=== PATIENT | male | born 1935 | race Caucasian/White ===

== ENCOUNTER 2016-08-12 15:06 | Inpatient (IN) ==
[2016-08-12] MEDS ORDERED: NS 500 ML IV ONE (15:38)
[2016-08-12 16:35] LABS: BASO% 0.1 % (0.0-0.8); HEMATOCRIT 35.1 % (42.0-52.0); HEMOGLOBIN 11.6 g/dL (14.0-18.0); IMM GRAN# 0.06 X1000 (0.0-0.04); IMM GRAN% 0.3 % (0.0-0.5); LYMPH% 3.8 % (20.5-51.1); MANUAL DIFF NEEDED? NO; MCH 29.8 PG (27-31); MCV 90.2 FL (81-99); MONO# 0.95 X1000 (0.11-0.59); MONO% 4.5 % (1.7-9.3); MPV 10.8 FL (7.4-10.4); NEUT% 91.3 % (42.2-75.2); PLT 175 X1000 (130-400); RBC 3.89 XMIL (4.7-6.1)
[2016-08-12 17:07] LABS: ALBUMIN 3.5 g/dL (3.5-5.0); CALCIUM 8.1 mg/dL (8.8-10.2); MAGNESIUM 0.9 mg/dL (1.5-2.7); POTASSIUM 4.4 mmol/L (3.5-5.1); TOTAL BILIRUBIN 3.05 mg/dL (0.20-1.00); TOTAL PROTEIN 7.2 g/dL (6.3-8.3)
--- NOTE | 2016-08-12 17:08 | Diag Imaging Result Document ---
PROCEDURE NAME: CHEST-2 VIEWS - 08/12/2016 FRONTAL AND LATERAL CHEST, TWO VIEWS: COMPARISON: 05/29/2014. FINDINGS: The lungs are well expanded. The heart is enlarged. The vessels are not distended. No pneumonia. No pleural effusions. No free air beneath the diaphragm. IMPRESSION: Cardiomegaly.
[2016-08-12 17:12] LABS: INR 1.05; PROTIME 11.1 Seconds (9.2-11.7); PTT 28.9 Seconds (22.0-36.0)
[2016-08-12] MEDS ORDERED: MAGNESIUM SULFATE 2 GM/S.W.I. 2 GM/50 ML IVPB IV ONE (17:24)
[2016-08-12 17:59] LABS: URINE CULTURE NEEDED? NO; URINE MICRO REVIEW NEEDED? NO; URINE SOURCE CATH
[2016-08-12 18:06] LABS: BILIRUBIN URINE SMALL (NEGATIVE); BLOOD URINE NEGATIVE (NEGATIVE); COLOR YELLOW; GLUCOSE URINE NEGATIVE (NEGATIVE); LEUKOCYTES URINE NEGATIVE (NEGATIVE); NITRITE URINE NEGATIVE (NEGATIVE); PH URINE 5.5; PROTEIN URINE 50 mg/dL (NEGATIVE); TURBIDITY URINE HAZY (CLEAR); UROBILINOGEN URINE 3 mg/dL (NORMAL)
[2016-08-12 18:07] LABS: UR EPITHELIAL CELLS <10 /HPF (<10); URINE BACTERIA NEGATIVE /HPF; URINE RBC <10 /HPF (<10); URINE WBC <10 /HPF (<10)
--- NOTE | 2016-08-12 18:16 | PROVIDER DOCUMENTATION ---
This chart was entered by Regine Brunner Scribe, acting as scribe for Deshaun Mills MD. HPI-General Adult - General Chief Complaint: Weakness Stated Complaint: low blood sugar Time Seen by Provider: 08/12/16 15:30 Source: patient, family (daughter) Allergies/Adverse Reactions: Patient Allergies Allergy/AdvReac Type Severity Reaction Status Date / Time Penicillins Allergy Severe HIVES Verified 08/12/16 15:14 Home Medications: Home Medication List Medication Instructions Recorded Confirmed Last Taken Type ATORVAstatin [Lipitor] 40 mg PO DAILY 05/29/14 08/12/16 08/11/16 History Carvedilol [Coreg] 6.25 mg PO BID 05/29/14 08/12/16 08/12/16 History ENALApril [Vasotec] 20 mg PO BID 05/29/14 08/12/16 08/12/16 08:00 History Glimepiride 2 mg PO DAILY 05/29/14 08/12/16 08/12/16 History Metformin E.r. [Glucophage Xr] 500 mg PO BID 05/29/14 08/12/16 08/12/16 History Spironolactone [Aldactone] 25 mg PO DAILY 05/29/14 08/12/16 08/12/16 History Levofloxacin [Levaquin] 500 mg PO DAILY #7 tablet 08/16/16 Unknown Rx - History of Present Illness -Gen Adult Nature of Presenting Problems: Pt is 81 y/o M presents to the ED with low blood sugar. Pt's daughter states Pt has had N and V since yesterday. Pt's daughter states F. Pt denies pain. Pt denies syncopal episode. Location of Pain/Injury: reports: generalized Pain Radiation: reports: no radiation Quality of Pain: reports: none Severity: reports: mild Onset/Duration: reports: 24 hours ago Timing: reports: still present Context/Activities at Onset: reports: light activity Modifying Factors: improves with: nothing Associated Symptoms: reports: fever/chills (F), loss of appetite, nausea, vomiting, weakness. denies: anxiety, arm pain, back/neck pain, chest pain, constipation, cough, diaphoresis, diarrhea, dizziness, EENT symptoms, fatigue, genitourinary problems, headaches, heartburn, joint pain, malaise, muscle aches , sinus congestion/drainage, rash, seizure, shortness of breath, sensory/motor loss, pain with inspiration, swelling/mass in abdomen, syncope, trouble walking Similar Symptoms Previously?: Yes Recently seen or treated by another doctor?: No Review of Systems - Adult - REVIEW OF SYSTEMS - ADULT Constitutional: reports: no symptoms reported Eyes: reports: no symptoms reported Ears, Nose, Mouth & Throat: reports: no symptoms reported Cardiovascular: reports: irregular heart rate (tachy). denies: chest pain, heart murmur Respiratory: reports: no symptoms reported Gastrointestinal: reports: no symptoms reported Genitourinary: reports: no symptoms reported Musculoskeletal: reports: muscle weakness. denies: bone pain, joint pain, neck pain Integumentary: reports: no symptoms reported Neurological: reports: no symptoms reported Psychiatric: reports: no symptoms reported Endocrine: reports: no symptoms reported Hematologic/Lymphatic: reports: no symptoms reported Allergic/Immunologic: reports: no symptoms reported All Other Systems: Reviewed and Negative Past History - Adult - PAST MEDICAL HISTORY-ADULT Review of Records: reports: Nursing Assessment Review, Medications Reviewed, Social history reviewed & non-contributory. Major Childhood Illnesses: reports: denies history Cardiovascular: reports: HTN, hyperlipidemia Respiratory: reports: denies history Gastrointestinal: reports: denies history Obstetrical/Gynecological: reports: denies history Genitourinary: reports: denies history Musculoskeletal: reports: denies history Neurological: reports: denies history Endocrine/Immune: reports: Diabetes Other Conditions: reports: denies history - PRIOR SURGERIES/PROCEDURES Surgical/Procedure History: reports: orthopedic (extremity) (foot Sx) - IMMUNIZATION STATUS Childhood Immunizations: UTD Flu Vaccine: UTD - FAMILY HISTORY Family History: reviewed, not pertinent - SOCIAL HISTORY Smoking: quit greater than 1 year, cigarettes Substance Use: denies Living Situation: family Physical Exam-General - PHYSICAL EXAM-ADULT Initial Vital Signs Reviewed: Yes - CONSTITUTIONAL General Appearance: appears well, alert - EYES Eyes: PERRL/EOMI - HEAD, EARS, NOSE, MOUTH & THROAT HENMT: normocephalic/atraumatic, moist mucous membranes - NECK Neck: normal inspection - RESPIRATORY Respiratory: chest non-tender, lungs clear, normal breath sounds - CARDIOVASCULAR Cardiovascular: tachycardia - GASTROINTESTINAL (ABDOMEN) Abdominal Exam: normal bowel sounds, non tender, soft - MUSCULOSKELETAL Back Exam: normal inspection, no vertebral tenderness Extremity: normal range of motion, non-tender, normal inspection - SKIN Integumentary: normal color, normal turgor, warm/dry, other (discoloration to the top of head) - NEUROLOGIC Neurologic: grossly normal, no motor/sensory deficits - PSYCHIATRIC Psych/Mental Status: normal mood/affect, oriented x 3 Progress - PLAN OF CARE/RESULTS Progress/Plan/Lab Results: Vital Signs - 8 hr 08/12/16 15:08 Temperature 98.6 F Pulse Rate 108 H Respiratory Rate 18 Blood Pressure 112/72 O2 Sat by Pulse Oximetry 99 Result Diagrams: 08/15/16 06:26 08/16/16 06:20 - EKG 1 Time of EKG reading by physician:: 17:34 EKG Read and Signed by:: Lilly Mills EKG Interpretation (*Must complete 3 of following elements*): Abnormal Rate: 87 Rhythm: sinus rhythm with premature atrial complexes - XRAY 1 XRAY Study: Chest Impression: Abnormal XRAY Interpretation: cardiomegaly - CHANGE OF SHIFT REPORT (ED Provider) Report Given and Care Transferred to:: Dr. Hollingsworth Time of Transfer: 18:09 Items Pending: Labs, CT/MRI Results, Ultrasound Results Departure - Departure Date of Disposition Decision: 08/12/16 Time of Disposition Decision: 21:00 DIAGNOSIS: Hypoglycemia, Weakness Disposition: ADMITTED INPATIENT 09 Certified Medical Emergency: Emergent Condition: Stable - Critical Care Note This patient required my direct & personal management of CC.: No This chart was documented by the indicated scribe, (Regine Brunner Scribe) and accurately reflects the services I performed and decisions made by Lina schuler Tom-Meka M., MD, as attested by the provider's signature.
[2016-08-12] MEDS ORDERED: NS 1,000 ML IV PRN (22:44)
[2016-08-12] MEDS ORDERED: ZOFRAN IV PRN (22:44)
[2016-08-12] MEDS: HUMULIN R SUBQ SCH (23:39)
[2016-08-12] MEDS: LEVAQUIN 500 MG/D5W 500 MG/100 ML IVPB IV SCH (23:39)
--- NOTE | 2016-08-12 23:41 | HISTORY AND PHYSICAL ---
PRIMARY CARE PHYSICIAN: Dr. Asael Valentino. CHIEF COMPLAINT: Nausea, vomiting, mild abdominal pain. HISTORY OF PRESENTING ILLNESS: An 81-year-old male with a history of diabetes mellitus type 2, hypertension, hyperlipidemia, had presented to emergency department with 1-day history of having intractable nausea, vomiting. He states that he had some mild abdominal discomfort. However he does have a high pain threshold. He had presented to emergency department. He had imaging done which did show dilated common bile duct with some debris in it. It was suspected possibly had choledocholithiasis. Subsequently he will need hospitalization for further management. At the time of my examination he had denied any headache, chest pain, shortness of breath, hemoptysis, melena or any weight changes but did complain to having some mild fevers and nausea, vomiting and some abdominal discomfort. PAST MEDICAL HISTORY: Include diabetes mellitus type 2, hypertension, hyperlipidemia. 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 ALLERGIES: Penicillin. CURRENT MEDICATIONS: As listed in the MAR. SOCIAL HISTORY: He is a former smoker, history of alcohol abuse in the past. Denies any illicit drug use. He is fairly independent. FAMILY HISTORY: No history of coronary disease. REVIEW OF SYSTEMS: [employer] point systems is as in HPI. Other systems all negative. PHYSICAL EXAMINATION: GENERAL: Cooperative, friendly, elderly male. He is resting comfortably now. VITAL SIGNS: Temperature 98.6 degrees, pulse 108, respiration 18, blood pressure 112/72. He is saturating 99%. HEENT: Atraumatic, normocephalic. Extraocular movements intact. PERRLA. NECK: No masses. CHEST: Clear to auscultation. CARDIOVASCULAR: Regular rate and rhythm. ABDOMEN: Soft. Mild tenderness. EXTREMITIES: No edema. NEURO: He is awake, alert, oriented x3. : No bladder distention. SKIN: Warm. LABORATORIES AND STUDIES: WBCs 21.26, hemoglobin 11.6, hematocrit 35.1, platelets 175,000. Sodium 133, potassium 4.4, chloride 94, CO2 is 19, BUN is 22, creatinine is 2.1, glucose is 172, magnesium is 0.9. ASSESSMENT: This is an 81-year-old male with a history of diabetes mellitus type 2, hypertension, hyperlipidemia, presented to emergency department with a 1-day history of having nausea, vomiting and abdominal discomfort. The patient had imaging done which did show a dilated common bile duct. Subsequently, he will need hospitalization for management. 1. Abdominal pain. 2. Suspected choledocholithiasis. 3. Hypomagnesemia. 4. Acute kidney injury. 5. Diabetes mellitus type 2. 6. Hypertension. PLAN: 1. We will admit patient to medical floor with telemetry. 2. We will keep patient NPO. Continue with IV fluids, pain control and antiemetics. 3. We will consult general surgery for evaluation of suspected choledocholithiasis. 4. Replace magnesium as was done in the ER. 5. We will monitor his renal function. Continue with gentle hydration. 6. Monitor blood glucose and continue patient on sliding scale insulin regimen. 7. We will monitor blood pressure. Resume antihypertensive agent. 8. We will put patient on DVT prophylaxis with SCD. 9. We will continue to follow and reassess. cc: Deepak Olson MD
[2016-08-13 06:42] LABS: MANUAL DIFF NEEDED? NO
[2016-08-13 06:43] LABS: BASO% 0.1 % (0.0-0.8); EOS# 0.02 X1000 (0.0-0.7); EOS% 0.1 % (0.0-10.0); HEMATOCRIT 32.9 % (42.0-52.0); HEMOGLOBIN 10.9 g/dL (14.0-18.0); IMM GRAN# 0.03 X1000 (0.0-0.04); IMM GRAN% 0.2 % (0.0-0.5); LYMPH# 1.94 X1000 (1.2-3.4); LYMPH% 12.8 % (20.5-51.1); MCH 29.8 PG (27-31); MCHC 33.1 g/dL (33-37); MCV 89.9 FL (81-99); MONO# 0.97 X1000 (0.11-0.59); MONO% 6.4 % (1.7-9.3); MPV 10.2 FL (7.4-10.4); NEUT% 80.4 % (42.2-75.2); PLT 167 X1000 (130-400); RBC 3.66 XMIL (4.7-6.1)
[2016-08-13] MEDS ORDERED: D50W SYRINGE IV ONE (06:43)
[2016-08-13 07:04] LABS: ALBUMIN 3.4 g/dL (3.5-5.0); CALCIUM 8.9 mg/dL (8.8-10.2); MAGNESIUM 1.8 mg/dL (1.5-2.7); POTASSIUM 4.6 mmol/L (3.5-5.1); TOTAL BILIRUBIN 2.82 mg/dL (0.20-1.00); TOTAL PROTEIN 6.8 g/dL (6.3-8.3)
[2016-08-13] MEDS: HUMULIN R SUBQ SCH ×5 (07:07→20:58)
[2016-08-13] MEDS ORDERED: DILAUDID IV PRN (07:59)
[2016-08-13] MEDS: D5 NS 1,000 ML IV SCH ×2 (08:30→20:50)
[2016-08-13] MEDS: PROTONIX IV SCH ×2 (12:20→20:50)
[2016-08-13] MEDS: SODIUM CHLORIDE 0.9% INJ SCH ×2 (12:20→20:50)
--- NOTE | 2016-08-13 12:57 | Diag Imaging Result Document ---
PROCEDURE NAME: CT ABD/PELVIS W/ IV CONT ONLY - 08/12/2016 CT ABDOMEN AND PELVIS WITHOUT CONTRAST: TECHNIQUE: No contrast administered per request of the referring provider. A dose reduction protocol was used. No comparison exam. FINDINGS: There is apparent calcified pleural plaque at the posterior base of the left chest. There are no substantial abnormalities of the liver or adrenal glands. The spleen appears upper normal in size. The pancreas is somewhat atrophic but shows no acute abnormality. The common bile duct is distended up to approximately 1.5 cm. There is possibly some soft-tissue density debris in distal common bile duct. There are no densely calcified gallstones identified. There is an apparent 2.9 cm uncomplicated duodenal diverticulum which arises at the proximal transverse duodenum at the inferior aspect of the pancreatic head. There is a tiny nonobstructing stone in the right kidney. There is no hydronephrosis. There is a 3.5-cm distal abdominal aortic aneurysm. There is ectasia of the bilateral common iliac arteries. There are atherosclerotic calcifications noted. There is no retroperitoneal hematoma seen. There are fat-containing bilateral inguinal hernias. There is no bowel-containing hernia seen. There is no evidence of bowel obstruction. The appendix is unremarkable. There is uncomplicated colonic diverticulosis which is most prominent at the sigmoid colon. There is no free air, substantial free fluid, or abscess identified. IMPRESSION: 1. Distended common bile duct up to 1.5 cm. Possible debris in distal common bile duct. There are no densely calcified gallstones seen. 2. 2.9 cm uncomplicated diverticulum arising at proximal transverse duodenum. Uncomplicated colonic diverticulosis. 3. Bilateral fat-containing inguinal hernias. No bowel-containing hernia. No bowel obstruction. 4. No abscess. No free air. 5. 3.5 cm infrarenal abdominal aortic aneurysm. No retroperitoneal hematoma. There are atherosclerotic calcifications noted. 6. Tiny nonobstructing stone in right kidney. No hydronephrosis. Preliminary results were provided at 7:19 p.m. on 08/12/2016.
--- NOTE | 2016-08-13 15:11 | PROGRESS NOTE ---
DATE: 08/13/2016 SUBJECTIVE: Mr. Bud Ruby is an 81-year-old, male. He is in no acute distress. He is able to answer questions appropriately. He is resting comfortably in bed. He denies any abdominal pain at this time. States that he feels great this morning and that he is hungry. He did state that his blood sugar was low this morning. He feels better since it improved. No other complaints. OBJECTIVE: Vital Signs: Temperature is 97.4 degrees, heart rate 73, respiratory rate 16. Blood pressure 134/66, saturation is a 98% on room air. Cardiovascular: S1, S2. Regular rate and rhythm. No rubs, gallops, or murmurs. Pulmonary: Clear to auscultation. Bilateral breath sounds. No accessory muscle use or work of breathing noted. GI: Soft, nontender, round, obese. Positive bowel sounds x4. Extremities: Trace lower extremity edema. +2 dorsalis and radial pulses. LABORATORY DATA: White blood cells 15,000, hemoglobin 10, hematocrit 32, platelet count 167,000. Sodium 139, potassium 4.6, BUN 21, creatinine is 1.5. Glucose was 54, but is back up to 92. Magnesium 1.8. Total bilirubin is 2.82, AST 139, ALT 112. IMAGING: None for today. ASSESSMENT AND PLAN: 1. Some abdominal pain which is improved with IV fluid hydration and nothing per oral status, although he can have ice chips. 2. Gastroesophageal reflux disease. 3. Suspected choledocholithiasis. General Surgery has been consulted. He is nothing per oral except for ice chips. The abdominal ultrasound or the gallbladder ultrasound showed distended common bile duct at 1.2 cm and distal common bile duct was obscured by artifacts. There were no gallstones and the gallbladder was partially contracted. When abdominal-pelvic CT was performed, it showed uncomplicated diverticulosis. No abscess or free air, no obstruction and it showed fat-containing inguinal hernias, but it also showed the distended common bile duct up to 1.5 cm with possible debris is in the distal duct. We will continue with IV fluid hydration, nothing per oral and ice chips. 4. Hypomagnesemia is resolved. 5. Acute kidney insufficiency on chronic kidney disease, stage 3. Again, continue with IV fluid hydration. 6. Diabetes mellitus type 2. Continue with pattern blood glucoses and sliding scale insulin. He did get hypoglycemic this morning. 7. Hypertension. Continue to monitor. 8. Hypoglycemia. D5 normal saline at 75 an hour. 9. Leukocytosis, continue with gram-negative IV antibiotic coverage, deep venous thrombosis prophylaxis. Sequential Compression Devices. Dictated by MEHRDAD Cadet for Zofia Gomez MD cc: MEHRDAD Cadet MD
--- NOTE | 2016-08-13 16:57 | CONSULTATION ---
DATE OF CONSULTATION: 08/13/2016 HISTORY OF PRESENT ILLNESS: This 81-year-old male with history of diabetes who presents with approximately 72 hour history of nausea, vomiting, progressive fatigue and hypoglycemia at the medicine service. He denies any abdominal pain. He has had some fevers at home. He had some altered mental status and ataxia and was brought in by the family, found to be hypoglycemic at 37 at home. States his bowel movements have been normal. Denies any GI bleeding. Had some nausea, vomiting and some epigastric discomfort, but this is all resolved now. Family has not noted anything else out of the ordinary. He has never had a colonoscopy or EGD. PAST MEDICAL HISTORY: Diabetes, hypertension, hyperlipidemia. PAST SURGICAL HISTORY: He has had a toe removed from each foot. Otherwise, no abdominal operations. SOCIAL HISTORY: History of smoking and alcohol, but nothing recent. He has got a lot of family here with him. FAMILY HISTORY: Negative for cancer. REVIEW OF SYSTEMS: Ten point negative unless mentioned in HPI. Weight has been stable as well. PHYSICAL EXAMINATION: Vital signs: Temperature 97.6 degrees, pulse 71, blood pressure 141/71, O2 saturation 98% on room air. General: He is alert, in no acute distress. HEENT: There is some mild scleral icterus. There are no cervical masses or lymphadenopathy. Cardiovascular: Normal rate, regular rhythm. Pulmonary: No increased work of breathing. Abdomen: Soft, nontender, nondistended. Integument: Warm, dry, he does have jaundice noted. Musculoskeletal: Normal tone and muscle mass throughout given his age. Neurologic: I do not see any focal deficits. He is alert and oriented. LABORATORY: White count 15, it was 21 on admission, hematocrit 32, platelets 167,000. INR is 1.05. Sodium is 139, potassium 4.6, creatinine is 1.7, glucose is 54 this morning. Magnesium is 1.8, it was 0.9 yesterday and bilirubin is 2.82. AST is 139, ALT 112. Alkaline phosphatase 187. No lipase. Albumin is 3.4. Urinalysis with bilirubin negative for nitrates and leukocytes. DIAGNOSTICS: Ultrasound of the abdomen showed no gallstones and normal gallbladder. Otherwise, there is some common bile duct dilation to 1.[address] scan of the abdomen and pelvis p.o. and IV contrast showed distended common bile duct up to 1.5 cm and there is question of distal debris. 3.5 cm abdominal aortic aneurysm. Diverticulosis. No inflammation. No free air. Fat-containing inguinal hernias. No bowel obstruction. On my read, I also see a heterogeneous gas-appearing collection that looks like it is in the head of the pancreas. I do not see any discrete masses. ASSESSMENT AND PLAN: This is an 81-year-old male with jaundice, hypoglycemia, nausea, vomiting of unclear etiology. His ultrasound did not show any gallstones. It is possible that this is all choledocholithiasis; however, I suspect a process in the head of the pancreas. Whether this is a perforated duodenal ulcer in the head of pancreas or some pancreatic process, I am waiting to hear from the radiologist on their thoughts on this as well. We will monitor him. He is on IV antibiotics, IV fluids. Recommend strict nothing per oral at this point, until we determine the etiology of this, and I suspect he will need the MRCP or ERCP to stent the distal duct, and we will decide on need for cholecystectomy in the future. I do not see any cholecystitis right now. I have ordered a lipase. We will need to monitor him closely for this. cc: Jovani Pinedo MD
[2016-08-13] MEDS: LEVAQUIN 500 MG/D5W 500 MG/100 ML IVPB IV SCH (21:44)
[2016-08-14] MEDS: HUMULIN R SUBQ SCH ×5 (06:57→23:06)
[2016-08-14 07:01] LABS: MANUAL DIFF NEEDED? NO
[2016-08-14 07:03] LABS: BASO% 0.1 % (0.0-0.8); EOS# 0.07 X1000 (0.0-0.7); EOS% 0.6 % (0.0-10.0); HEMATOCRIT 33.4 % (42.0-52.0); HEMOGLOBIN 10.9 g/dL (14.0-18.0); IMM GRAN# 0.03 X1000 (0.0-0.04); IMM GRAN% 0.3 % (0.0-0.5); LYMPH% 14.7 % (20.5-51.1); MCH 29.7 PG (27-31); MCHC 32.6 g/dL (33-37); MONO# 0.78 X1000 (0.11-0.59); MONO% 7.1 % (1.7-9.3); MPV 10.3 FL (7.4-10.4); NEUT% 77.2 % (42.2-75.2); PLT 186 X1000 (130-400); RBC 3.67 XMIL (4.7-6.1)
[2016-08-14 07:27] LABS: ALBUMIN 3.4 g/dL (3.5-5.0); CALCIUM 9.1 mg/dL (8.8-10.2); POTASSIUM 5.3 mmol/L (3.5-5.1); TOTAL BILIRUBIN 1.46 mg/dL (0.20-1.00); TOTAL PROTEIN 6.9 g/dL (6.3-8.3)
--- NOTE | 2016-08-14 07:57 | Diag Imaging Result Document ---
PROCEDURE NAME: US GB < RUQ (LIMITED) - 08/12/2016 ULTRASOUND GALLBLADDER: FINDINGS: The gallbladder is partially contracted. Allowing for this, the gallbladder yanes do not appear substantially thickened. There is no pericholecystic fluid seen. The technologist reports negative sonographic Larios's sign. There are no gallstones identified. The common bile duct is distended at 1.2 cm. There is no etiology for this apparent. The distal common bile duct is obscured by artifacts from bowel gas, however. The liver demonstrates homogeneous attenuation. There is no liver lesion identified. IMPRESSION: 1. Partially contracted gallbladder. No visible gallbladder abnormality otherwise. No gallstones identified. 2. Distended common bile duct at 1.2 cm. There is no etiology for the distention apparent, but the distal common bile duct is obscured by bowel gas artifacts. 3. No visible liver lesion. Preliminary results were provided at 7:36 p.m. on 08/12/2016.
[2016-08-14] MEDS: SODIUM CHLORIDE 0.9% INJ SCH ×2 (08:16→20:19)
[2016-08-14] MEDS: PROTONIX IV SCH ×2 (08:16→20:19)
[2016-08-14] MEDS ORDERED: HUMULIN R SUBQ SCH (11:00)
[2016-08-14 11:32] LABS: HEPATITIS PROFILE ACUTE SEE COMMENTS
[2016-08-14] MEDS: D5 NS 1,000 ML IV SCH (12:25)
--- NOTE | 2016-08-14 13:39 | PROGRESS NOTE ---
DATE: 08/14/2016 SUBJECTIVE: The patient states that he is hungry and wants to eat. He denies having any nausea, vomiting or abdominal pain. OBJECTIVE: Vital Signs: Temperature 97 degrees, blood pressure 171/73, heart rate 73, respirations 14, O2 saturations 98% on room air. General: This is an elderly male, lying in bed, in no acute distress. HEENT: Head normocephalic atraumatic. Heart: S1, S2. Normal. Regular rate and rhythm. Lungs: Clear to auscultation bilaterally. No wheezing. No rales. No rhonchi. Abdomen: Positive bowel sounds. Soft, nontender, nondistended. Extremities: No edema. No cyanosis. No calf tenderness. Neurologic: The patient is alert and oriented x3. No focal neurologic deficits noted. LABS: White blood cell count 10, hemoglobin 10, hematocrit 33, platelets 186,000. Sodium 140, potassium 5.3, chloride 103, CO2 27, BUN 14, creatinine 1.5, glucose 137, calcium 9.1, AST 111, total bilirubin 1.4, ALT 95, alkaline phosphatase 184, albumin 3.4. ASSESSMENT AND PLAN: 1. Suspected choledocholithiasis. The patient's LFTs are slowly improving. The patient does have a distended common bile duct on ultrasound. We will await further recommendations from the fire management specialist. 2. Hypertension. The patient is currently NPO. We will start the patient on p.r.n. labetalol for blood pressure control. 3. Diabetes mellitus type 2. Stable. Will continue to monitor the Accu-Cheks before meals and at bedtime. 4. Acute kidney injury. Slowly improving. Continue on IV fluid hydration. 5. Deep vein thrombosis prophylaxis. Continue with SCDs. Will hold Lovenox in anticipation of a possible procedure tomorrow. cc: Zofia Gomez MD
--- NOTE | 2016-08-14 17:30 | PROGRESS NOTE ---
DATE: 08/14/2016 SUBJECTIVE: Feels well. No nausea or vomiting. No abdominal pain. Jaundice is improved. OBJECTIVE: Vital signs: Temperature is 97.6 degrees, no fevers overnight, pulse 81, blood pressure 149/90, oxygen saturation 98% on room air. General: He is alert. Skin: There is persistent jaundice but it has improved. HEENT: No scleral icterus. Cardiovascular: Normal rate. Regular rhythm. Pulmonary: No increased work of breathing. Abdomen: Soft, nontender, nondistended. Extremities: No lower extremity edema. LABS: White count down to 10, hematocrit 33, platelets are 186. Creatinine is 1.5, bilirubin is 1.46, AST 113, ALT 95, alkaline phosphatase 185. Hepatitis panel negative. ASSESSMENT AND PLAN: This is an 81-year-old white male admitted with hypoglycemia, nausea, vomiting, and found to be jaundiced. CT scan shows dilated common bile duct likely related to either a contained perforation of the duodenum or duodenal diverticulum. His numbers are improving. He has no sign of cholangitis or bowel obstruction or gastric outlet obstruction. Also on the ultrasound of his gallbladder he has no stones or gallbladder abnormalities. I have asked Dr. Macile to see and evaluate for ERCP. I think this would be both diagnostic and therapeutic I suspect this is some extrinsic compression on the distal common bile duct by the process in his duodenum. If his ERCP shows stones will perform a cholecystectomy. He is on antibiotics for adequate intra-abdominal coverage. cc: Jovani Pinedo MD
[2016-08-14] MEDS: LEVAQUIN 500 MG/D5W 500 MG/100 ML IVPB IV SCH (20:19)
[2016-08-14] MEDS: MELATONIN PO PRN (20:21)
--- NOTE | 2016-08-14 21:42 | CONSULTATION ---
DATE OF CONSULTATION: 08/14/2016 REASON FOR REFERRAL: Nausea, vomiting, elevated liver function tests. HISTORY OF PRESENT ILLNESS: This is an 81-year-old male with a history of diabetes. He had complained of episodes of nausea and vomiting starting last . He had not been able to eat. Because of that he had low blood sugar. He came in for further evaluation. He had imaging studies of abdominopelvic CT scan that showed a distended common bile duct up to 1.5 cm, possible debris in the distal common bile duct, 2.9 cm uncomplicated diverticulum in the transverse duodenum, bilateral fat containing inguinal hernias noted, 3.5 cm infrarenal abdominal aortic aneurysm and tiny nonobstructive stones in the right kidney with no hydronephrosis. An abdominal ultrasound showed partially contracted gallbladder with no visible gallbladder abnormality, no stones noted, distended common bile duct at 1.2 cm and no visible liver lesion. On admission his total bilirubin was 3.05, AST 166, ALT 126, alkaline phosphatase 211. Today his total bilirubin is 1.46, AST 113, ALT 95, alkaline phosphatase 184. The patient denies abdominal pain. He has never had an EGD or colonoscopy. Denies rectal bleeding. Denies melena. He did have some fever with nausea and vomiting. PAST MEDICAL HISTORY: Diabetes type 2, hypertension, hyperlipidemia. PAST SURGICAL HISTORY: Left and right toe amputations. ALLERGIES: Penicillin causing hives. HOME MEDICATIONS: Aldactone 25 mg daily, metformin 500 mg twice daily, glimepiride 2 mg daily, Vasotec 20 mg twice daily, Coreg 6.25 mg twice daily, Lipitor 40 mg daily. SOCIAL HISTORY: He quit tobacco and alcohol use over 50 years ago. He is . He has 4 children. REVIEW OF SYSTEMS: Per history of present illness. PHYSICAL EXAMINATION: Vital Signs: Temperature 97.6 degrees, pulse 81, respirations 14, blood pressure 147/90. General: Patient is awake, alert, in no acute distress. HEENT: No noted scleral jaundice. Cardiovascular: Regular rate and rhythm. Abdomen: Soft, nontender, nondistended. Positive bowel sounds. Extremities: No lower extremity edema noted. Skin: Some mild skin jaundice. DIAGNOSTIC RESULTS/ LABORATORY: Hematology: White count 10.92, hemoglobin 10.9 , hematocrit 33.4, MCV 91.0, platelets 186,000. Coagulation: Pro time 11.1, INR 1.05, PTT 28.9. Chemistry: Sodium 140, potassium 5.3, chloride 103, CO2 27, BUN 14, creatinine 1.5, glucose 137, calcium 9.1, magnesium 1.8. Total bilirubin 1.46, AST 113, ALT 95, alkaline phosphatase 184 , albumin 3.4. ASSESSMENT AND PLAN: 1. Abnormal CT scan findings with dilated common bile duct. 2. Elevated LFTs. CT scan showed dilated common bile duct, possible contained perforation of the duodenum or duodenal diverticulum. LFTs have improved. We will first proceed with an EGD and then depending on the findings we may consider ERCP. Further plans to be made according to findings. I have discussed the EGD procedure with the patient along with benefits and risks, and he wishes to proceed. We will allow a liquid diet today. NPO for procedure, EGD tomorrow around lunchtime. Further plans to be made per Dr. Maciel. I have discussed this case with him. Thank you for this consultation. Dictated by MEHRDAD Omer for Chris Maciel MD cc: MEHRDAD Marie MD [facility]
[2016-08-15] MEDS: LABETALOL IV PRN (05:00)
[2016-08-15] MEDS: D5 NS 1,000 ML IV SCH ×2 (05:01→14:29)
[2016-08-15] MEDS: HUMULIN R SUBQ SCH ×4 (06:21→22:27)
[2016-08-15 06:37] LABS: MANUAL DIFF NEEDED? NO
[2016-08-15 07:00] LABS: ALBUMIN 3.1 g/dL (3.5-5.0); BASO% 0.2 % (0.0-0.8); CALCIUM 9.3 mg/dL (8.8-10.2); EOS# 0.09 X1000 (0.0-0.7); EOS% 1.1 % (0.0-10.0); HEMATOCRIT 34.4 % (42.0-52.0); LYMPH# 2.09 X1000 (1.2-3.4); LYMPH% 24.7 % (20.5-51.1); MCV 90.8 FL (81-99); MONO# 0.61 X1000 (0.11-0.59); MONO% 7.2 % (1.7-9.3); MPV 10.8 FL (7.4-10.4); NEUT% 66.8 % (42.2-75.2); PLT 178 X1000 (130-400); POTASSIUM 4.5 mmol/L (3.5-5.1); RBC 3.79 XMIL (4.7-6.1); TOTAL BILIRUBIN 0.98 mg/dL (0.20-1.00); TOTAL PROTEIN 6.5 g/dL (6.3-8.3)
[2016-08-15] MEDS: PROTONIX IV SCH ×2 (08:31→20:38)
[2016-08-15] MEDS: SODIUM CHLORIDE 0.9% INJ SCH ×2 (08:31→20:38)
--- NOTE | 2016-08-15 13:20 | PROGRESS NOTE ---
DATE: 08/15/2016 SUBJECTIVE: Feels well. No pain. No nausea or vomiting. No fevers. He is hungry. OBJECTIVE: Vital Signs: Temperature is 98.4 degrees, pulse 67, blood pressure 170/84, oxygen saturation was 98% on room air. General: He is alert. He no longer appears jaundiced. Cardiovascular: Normal rate, regular rhythm. Abdomen: Soft, nontender, nondistended. Integument: Warm, dry. Extremities: With no lower extremity edema. Labs: White count is 8, hematocrit is 34. Creatinine is down to 1.2. Bilirubin is now normal at 0.98. AST 80, ALT 75, alkaline phosphatase 170. ASSESSMENT AND PLAN: This is an 81-year-old male with a distal bile duct obstruction, seems to be resolving. It is of unclear etiology, gallstones versus complication related to duodenal diverticulum, possible contained perforation. I talked to Dr. Maciel. He is on go for an esophagogastroduodenoscopy this morning and possible endoscopic retrograde cholangiopancreatography pending these findings. We will see if he does in fact have gallstones, I have discussed with the patient that we need to take his gallbladder out, although there are no stones noted on his ultrasound. Three could be some small sludge. We will continue to follow along and see what Dr. Maciel finds today. He is on antibiotics. cc: Jovani Pinedo MD
[2016-08-15] MEDS ORDERED: DIPRIVAN 1% ONE ×3 (13:28→14:27)
[2016-08-15] MEDS ORDERED: GLUCAGON ONE (13:42)
[2016-08-15] MEDS ORDERED: LR 1,000 ML ONE (15:38)
[2016-08-15] MEDS ORDERED: ANESTHESIA PB SET 88 IN 5742 ONE (15:38)
[2016-08-15] MEDS ORDERED: XYLOCAINE-MPF 2% ONE (15:38)
--- NOTE | 2016-08-15 16:03 | PROGRESS NOTE ---
DATE: 08/15/2016 SUBJECTIVE: Today Mr. Ruby refers to be doing fine. He just came out of an ERCP procedure. Denies any complaints. OBJECTIVE: Vital signs: Blood pressure is 158/73, pulse of 72, respirations 16, temperature 97.7 degrees. General: Mr. Ruby is an 82-year-old male. He was in bed. Not seemingly distressed. HEENT: Mucosa is pink and moist. Slightly icteric. Acyanotic. Chest: Good air entry bilaterally. Abdomen: Soft. Slightly distended but nontender. There seems to be some collateral circulation on top of the abdominal wall. Extremities: No pedal edema. PROBE OPERATOR: Patient is alert and oriented. LABORATORY DATA: WBC is 8.45, hemoglobin is 11.0, platelet count of 178,000. Chemistries: Sodium 142, potassium 4.5, chloride 104, bicarb is 24, total bilirubin is down to 0.98, AST is down to 80, and ALT is down to 75. IMAGING STUDIES: A CT scan of the abdomen and pelvis was done on presentation. That shows dilated common bile duct up to 1.5, possible distal common bile duct. An ultrasound of the abdomen was done on the which shows partial contracted gallbladder, distended common bile duct at 1.2. No visible liver injury. CURRENT MEDICATIONS: 1. Dilaudid. 2. Insulin sliding scale. 3. Labetalol p.r.n. 4. Levofloxacin 500 daily. 5. Melatonin 5 mg at bedtime. 6. Protonix 40 mg IV q.12. ASSESSMENT: 1. Dilated common bile duct on imaging, suspicious for distal common bile duct obstruction. Patient is status post an ERCP today. We are just pending the official report. 2. Hypertension, stable. 3. Diabetes mellitus, controlled. 4. Acute kidney injury is improved. PLAN: We will going to start the patient on clear liquids until we get the official report from GI and then will go from there. For now will continue the antibiotics for prophylaxis for possible cholangitis. cc: Michael Cuello MD
--- NOTE | 2016-08-15 17:30 | OPERATIVE NOTE ---
PROCEDURE DATE: 08/15/2016 PROCEDURE: Esophagogastroduodenoscopy. PREOPERATIVE DIAGNOSIS: Nausea, vomiting, elevated liver function tests, question of possible distal common bile duct stone or debris. POSTOPERATIVE DIAGNOSES: 1. 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 2. Otherwise normal esophagogastroduodenoscopy HISTORY: This is an 81-year-old gentleman admitted to hospital with nausea, vomiting, along with diarrhea. On further investigation, he was found to have elevated LFT. His imaging studies, CT scan of the abdomen and ultrasound of the abdomen result shows possibility of distal common bile duct debris or stone and slightly dilated common bile duct. EGD was done prior to ERCP to identify the etiology and treat accordingly. PROCEDURE: Informed consent was obtained from the patient. The procedure, risks, benefits, alternatives were explained in layman's terms. He understood. All his pertinent questions answered. Patient was brought to the endoscopy unit and was premedicated as per Anesthesia. After adequate sedation, while he was lying in left lateral position, the gastroscope was introduced into the posterior pharynx and advanced under direct vision into the esophagus. Esophagus in its entire length appeared to be normal. No esophagitis, webs, rings, varices were seen. Scope was then passed through the esophagus into the stomach. Stomach was examined on both straight and retroflexed view, which revealed normal cardia, fundus, body, and antrum. The scope was then passed through the normal pylorus, into the duodenal bulb, and then 2nd part of duodenum where a large diverticula was noted just distal to the ampulla. The diverticula was filled with a good bit of debris of food content. No evidence of any ulcer, AVM or masses seen. Scope was withdrawn. Patient tolerated procedure well. No complications noted. Patient was then transferred to the recovery area in a stable condition. IMPRESSION/RECOMMENDATION: Diverticulum 2nd portion of the duodenum close to the ampulla. Imaging studies have read that. I did not see any need for me to proceed with endoscopic retrograde cholangiopancreatography at this point since his transaminases are coming down, his bilirubin already normalized. His symptoms have improved. I have recommended to start him on his diet, follow his LFT after discharge. I will see him back in the office and depending on the findings, depending on his progress from here on, we will decide if he needs to proceed with any further investigation such as ERCP. I have explained the finding and plan with the patient's daughter and . There were at the bedside. They understood. All the pertinent questions answered. cc: Chris Maciel MD
[2016-08-15] MEDS: LEVAQUIN 500 MG/D5W 500 MG/100 ML IVPB IV SCH (20:38)
[2016-08-15] MEDS: MELATONIN PO PRN (20:38)
[2016-08-16] MEDS: D5 NS 1,000 ML IV SCH ×2 (03:57→04:42)
[2016-08-16] MEDS: LABETALOL IV PRN (04:41)
[2016-08-16 06:54] LABS: ALBUMIN 3.3 g/dL (3.5-5.0); CALCIUM 8.8 mg/dL (8.8-10.2); POTASSIUM 4.7 mmol/L (3.5-5.1); TOTAL BILIRUBIN 1.06 mg/dL (0.20-1.00); TOTAL PROTEIN 6.7 g/dL (6.3-8.3)
[2016-08-16 07:32] VITALS: BP 169/76
[2016-08-16] MEDS: HUMULIN R SUBQ SCH ×2 (07:41→12:00)
[2016-08-16] MEDS: PROTONIX IV SCH (08:59)
--- NOTE | 2016-08-16 10:27 | PROGRESS NOTE ---
DATE: 08/16/2016 SUBJECTIVE: Feels well. No events. Had an EGD yesterday. It showed a large, food-contained duodenal diverticulum. PHYSICAL EXAMINATION: Vital Signs: Afebrile overnight, temperature is 98.1 degrees, pulse 70, blood pressure 169/76. Oxygen saturation 99% on room air. General: He is alert. HEENT: There is no more scleral icterus. Cardiovascular: Regular rate, regular rhythm. Abdomen: Soft, nontender, nondistended. Integumentary: Warm and dry without jaundice. LABORATORY DATA: White count was down 8 yesterday. Creatinine is 1.3. Bilirubin is 1.06. AST and ALT are down to 76 and 71. Alkaline phosphatase stable at 206. ASSESSMENT/PLAN: An 81-year-old male with large duodenal diverticulum. Suspect this was causing some degree of the common bile duct outlet obstruction related to possibly some of inflammation. His liver function tests are normalizing. He has no pain. White count has normalized. No fevers. I would advance the diet to soft today. I discussed a low residual diet with him. I would recommend completing a course of oral antibiotics going forward, given his white count when he came in. I gave my card. He can see me back in the next 1-2 weeks in my office and we can follow him. We will possibly repeat labs at that time, depending on how he looks. cc: Jovani Pinedo MD
--- NOTE | 2016-08-16 14:44 | PROGRESS NOTE ---
DATE: 08/16/2016 SUBJECTIVE: Patient states he is ready to go home. He denies any abdominal pain. No nausea or vomiting. OBJECTIVE: Patient is in no acute distress.Vital Signs: Temperature 98.1 degrees, pulse 70, respirations 19, blood pressure 169/76. Recent diagnostic results: EGD done on 08/15/2016 showed a diverticulum in the 2nd portion of the duodenum. LABORATORY: Hematology: White count 8.45, hemoglobin 11.0, hematocrit 34.4, MCV 90.8. Chemistry: Sodium 141, potassium 4.7, chloride 103, CO2 28, BUN 9, creatinine 1.3, glucose 136, total bilirubin is 1.06. AST 76, ALT 71, alkaline phosphatase 206. ASSESSMENT AND PLAN: 1. Elevated LFTs are improving. 2. Abnormal scan that showed possible common bile duct dilation or stones. 3. EGD that showed a large duodenal diverticulum. Suspect this was possibly the cause of the common bile duct obstruction related to inflammation. He denies pain. His liver function tests are improving. He has discharge orders. Recommended he follow up with us in the office in 2-3 weeks. Recommend repeat liver function tests. I will give him a lab order to have prior to his office visit. Recommended he call to the office sooner if he has any problem. Dictated by MEHRDAD Omer for Chris Maciel MD cc: MEHRDAD Marie MD
--- NOTE | 2016-08-17 07:46 | DISCHARGE SUMMARY ---
ADMISSION DATE: 08/12/2016 DISCHARGE DATE: 08/16/2016 DISPOSITION: Home. FOLLOWUP: 1. Dr. Maciel. 2. Dr. Pinedo. 3. Dr. Victor. CONSULTATIONS DURING THIS ADMISSION: 1. GI was consulted. Patient was seen by Dr. Maciel. 2. Surgery was also consulted. Patient was seen by Dr. Pinedo. INVASIVE PROCEDURES DONE DURING THIS ADMISSION: 1. EGD was done by Dr. Maciel. Finding was a large diverticulum in the 2nd portion of the duodenum close to the ampulla filled with debris. Otherwise normal EGD. IMAGING STUDIES OF SIGNIFICANCE: A CT scan of the abdomen and pelvis was done on 08/12/2016 which showed distended common bile duct to 1.5. There was also a 2.9 uncomplicated diverticulum arising at the proximal transverse duodenum. There is bilateral fat containing inguinal hernias, mild infra abdominal aortic aneurysm of 3.5 cm. ADMISSION DIAGNOSES: 1. Abdominal pain, suspected choledocholithiasis. 2. Hypomagnesemia. 3. Acute kidney injury. DISCHARGE DIAGNOSES: 1. Dilated common bile duct with elevated liver function tests. 2. Large duodenal diverticulum, suspected to be the cause of the common bile duct obstruction. 3. Hypertension. 4. Diabetes mellitus. 5. Acute kidney injury, resolved. 6. Bilateral inguinal hernias. 7. Infrarenal abdominal aneurysm. DISCHARGE MEDICATIONS: 1. Metformin 500 b.i.d. 2. Atorvastatin 40 mg daily. Glyburide 2 mg daily. 1. Carvedilol 6.25 b.i.d. 2. Enalapril 20 mg b.i.d. 3. Spironolactone 25 mg daily. 4. Levofloxacin 500 p.o. daily. PRESENTING COMPLAINT: Nausea, vomiting, and mild abdominal pain. HISTORY OF PRESENTING ILLNESS: Mr. Ruby is an 81-year-old male with stable, controlled comorbidities including diabetes, hypertension, dyslipidemia, who presented to the emergency department because of abdominal pain. The patient was evaluated and initial assessment revealed a CT scan with a dilated CBD. Patient was subsequently admitted for further medical care. HOSPITAL COURSE: Patient did pretty well during the hospital stay. He was evaluated by both surgery and GI. There was a decision to do an EGD with possible ERCP. During the EGD the patient was found to have a large diverticulum at the 2nd part of the duodenum very close to the ampulla. Because the LFTs and bilirubin were trending down, the decision to do an ERCP was aborted by the endoscopist. The patient was observed after the EGD. There were no immediate post complications. Surgery re- evaluated the patient and thought the patient could go home on oral antibiotics and follow up with them. I personally spoke with Dr. Maciel, who was also okay for the patient to go home on oral antibiotics, repeat the LFTs in about a week to 2, and follow up with him. The patient will therefore get an appointment to follow up with Dr. Maciel and also with Dr. Sahhida berg. At the time of discharge there were no pending labs or imaging studies. TIME SPENT FOR DISCHARGE: 37 minutes. cc: Michael Cuello MD
[2016-08-17] MEDS ORDERED: LEVAQUIN PO SCH (20:00)
== END 2016-08-16 15:48 | disposition home or self-care (01) ==
LOC: ED 15:06 → SUATTDRO 21:57 → 3N 21:57
PROVIDERS: ATTEND Internal Medicine

== ENCOUNTER 2018-10-31 01:02 | Observation (INO) ==
[2018-10-31] MEDS ORDERED: NS 1,000 ML IV ONE (01:09)
[2018-10-31 01:53] LABS: BASO# 0.02 X1000 (0.0-0.2); BASO% 0.5 % (0.0-0.8); EOS# 0.05 X1000 (0.0-0.7); EOS% 1.2 % (0.0-10.0); HEMATOCRIT 32.1 % (42.0-52.0); LYMPH# 2.89 X1000 (1.2-3.4); LYMPH% 66.7 % (20.5-51.1); MCH 25.8 PG (27-31); MCHC 31.2 g/dL (33-37); MCV 82.7 FL (81-99); MONO# 1.33 X1000 (0.11-0.59); MONO% 30.7 % (1.7-9.3); MPV 10.6 FL (7.4-10.4); NEUT% 0.9 % (42.2-75.2); PLT 229 X1000 (130-400); RBC 3.88 XMIL (4.7-6.1); RDW 15.6 % (11.5-14.5); WBC 4.33 X1000 (4.8-10.8)
[2018-10-31 01:54] LABS: NEUT# 0.04 X1000 (1.4-6.5)
[2018-10-31 01:56] LABS: INR 1.07; PTT 30.4 Seconds (22.3-41.8)
[2018-10-31 02:02] LABS: ALB/GLOB RATIO 1.1; ALBUMIN 3.4 g/dL (3.5-5.0); CALCIUM 8.4 mg/dL (8.8-10.2); CREATININE 1.5 mg/dL (0.7-1.2); POTASSIUM 3.9 mmol/L (3.5-5.1); TOTAL BILIRUBIN 0.59 mg/dL (0.20-1.00); TOTAL PROTEIN 6.4 g/dL (6.3-8.3)
--- NOTE | 2018-10-31 02:17 | PROVIDER DOCUMENTATION ---
HPI-Neurological Disorder - General Chief Complaint: Low Blood Sugar Stated Complaint: hypoglycemia Time Seen by Provider: 10/31/18 01:07 Source: patient, family, EMS Allergies/Adverse Reactions: Patient Allergies Allergy/AdvReac Type Severity Reaction Status Date / Time Penicillins Allergy Severe HIVES Verified 07/27/17 23:09 Home Medications: Home Medication List Medication Instructions Recorded Confirmed Last Taken Type ATORVAstatin [Lipitor] 40 mg PO DAILY 05/29/14 10/31/18 07/27/17 History Carvedilol [Coreg] 6.25 mg PO BID 05/29/14 10/31/18 07/27/17 History Glimepiride 2 mg PO DAILY 05/29/14 10/31/18 07/27/17 History Spironolactone [Aldactone] 25 mg PO DAILY 05/29/14 10/31/18 07/27/17 History Enalapril Maleate 20 mg PO BID 10/31/18 10/31/18 Unknown History Metformin [Glucophage] 500 mg PO BID 10/31/18 10/31/18 Unknown History - History of Present Illness-Neuro Nature of Presenting Problem: Patient was found on the floor of his bedroom by his with seizure-like activity. No obvious trauma, last seen normal an hour or two before. Patient is a NIDDM patient who did not eat well for dinner and has had occasional episodes of hypoglycemia in the past. He sees Dr. Victor. No new medications. EMS reports D-Stick of 27 at the scene. They gave patient 1 amp of D50, and seizure stopped and patient has been getting progressively more alert. No obvious injuries. Patient's family notes a fall a couple of weeks ago, did not seek medical care at the times, but has been "doctoring" several large skin tears at home to both forearms and right upper arm. Headache Location: reports: other (seizure/AMS) Onset/Duration: reports: abrupt, just prior to arrival Timing: reports: improving Context: reports: found unresponsive by family, low blood sugar, seizure activity Approximate time patient was last seen normal?: 21:00 Character of Altered Mental Status: reports: unresponsive, seizure activity Any recent trauma/injury?: reports: minor (2 weeks ago) New weakness or altered sensation location:: reports: general (diffuse) Cognitive Baseline: alert, oriented x3 Associated Symptoms: reports: decreased ability to walk or stand, diaphoretic Similar Symptoms Previously?: Yes (on occasions, but never this bad) Recently seen or treated by another doctor?: No (emily Victor) - Seizure First time to have a seizure?: Yes Witnessed seizure?: Yes (family and EMS) How many seizure episodes?: 1 Episode details: reports: unknown duration Episode Frequency: no prior episodes Status Epilepticus: No Preceding symptoms/context:: none Character of Seizure: reports: lost consciousness, generalized shaking all over. denies: incontinent of urine, incontinent of stool Post-ictal Symptoms: reports: confusion Seizure related injury: none Review of Systems - Adult - REVIEW OF SYSTEMS - ADULT Constitutional: reports: no symptoms reported Eyes: reports: no symptoms reported Ears, Nose, Mouth & Throat: reports: no symptoms reported Cardiovascular: reports: no symptoms reported Respiratory: reports: no symptoms reported Gastrointestinal: reports: no symptoms reported Genitourinary: reports: no symptoms reported Musculoskeletal: reports: no symptoms reported Integumentary: reports: no symptoms reported Neurological: reports: see HPI Psychiatric: reports: no symptoms reported Endocrine: reports: no symptoms reported Hematologic/Lymphatic: reports: no symptoms reported Allergic/Immunologic: reports: no symptoms reported All Other Systems: Reviewed and Negative Past History - Adult - PAST MEDICAL HISTORY-ADULT Review of Records: reports: Old Records Reviewed, Nursing Assessment Review, Medications Reviewed, Social history reviewed & non-contributory. Major Childhood Illnesses: reports: denies history Cardiovascular: reports: HTN, hyperlipidemia Respiratory: reports: denies history Gastrointestinal: reports: denies history Obstetrical/Gynecological: reports: denies history Genitourinary: reports: denies history Musculoskeletal: reports: denies history Neurological: reports: denies history Endocrine/Immune: reports: Diabetes Diabetes Type: Type 2 Diabetes controlled by:: PO Meds Other Conditions: reports: denies history - PRIOR SURGERIES/PROCEDURES Surgical/Procedure History: reports: orthopedic (extremity) (foot Sx) - IMMUNIZATION STATUS Childhood Immunizations: UTD Flu Vaccine: UTD - FAMILY HISTORY Family History: reviewed, not pertinent - SOCIAL HISTORY Smoking: quit greater than 1 year Substance Use: none/never Alcohol Use Frequency: rarely Living Situation: family Physical Exam- Neurological - Physical Exam-Neuro Initial Vital Signs Reviewed: Yes (VSSAF, HYPOTHERMIC d/t hypoglycemia) General Appearance: appears well, alert, no apparent distress, other (mumbles a little) Eye Exam: bilateral eye: normal inspection, PERRL, EOMI HENMT: normocephalic/atraumatic, moist mucous membranes, normal ENT inspection, pharynx normal Head Injury: no evidence of injury Neck: non-tender, full range of motion, supple, normal inspection Respiratory: chest non-tender, lungs clear, normal breath sounds, no pleuratic chest pain, no respiratory distress, no accessory muscle use Cardiovascular: normal peripheral pulses, regular rate, rhythm, no edema, no gallop, no JVD, no murmur, extra beats (occasional) Abdominal Exam: normal bowel sounds, non tender, soft, no organomegaly, no pulsatile mass Lymphatic: no adenopathy Extremity: normal range of motion, non-tender, normal inspection, no pedal edema , no calf tenderness, normal capillary refill school aide Exam: PERRL, abnormal speech (mumbles a lttle), hearing deficit (R), hearing deficit (L), other (apparently has hearing aides, which patient does not have in) Coordination/Gait: normal finger to nose Motor/Sensory: no motor deficit, no sensory deficit, no pronator drift, negative Babinski's sign Neurologic: school aide II-XII nml as tested, grossly normal, no motor/sensory deficits Integumentary: normal color, normal turgor, diaphoresis, other (cold). negative: warm Psych/Mental Status: normal mood/affect, normal thought content, normal thought process, oriented x 3 - Glascow Coma Scale Best Eye Response: (4) open spontaneously Best Verbal Response: (4) confused conversation (a little) Best Motor Response: (6) obeys commands Total Glascow Score: 14 Progress - PLAN OF CARE/RESULTS Progress/Plan/Lab Results: Vital Signs - 8 hr 10/31/18 01:13 Temperature 95.8 F L Pulse Rate 91 H Respiratory Rate 24 Blood Pressure 136/75 O2 Sat by Pulse Oximetry 99 Laboratory Results - last 24 hr 10/31/18 10/31/18 10/31/18 01:07 01:30 01:30 WBC 4.33 L RBC 3.88 L Hgb 10.0 L Hct 32.1 L MCV 82.7 MCH 25.8 L MCHC 31.2 L RDW Std Deviation 15.6 H Plt Count 229 MPV 10.6 H Neut % (Auto) 0.9 L Lymph % (Auto) 66.7 H Marshall % (Auto) 30.7 H Eos % (Auto) 1.2 Baso % (Auto) 0.5 Neut # (Auto) 0.04 L* Lymph # (Auto) 2.89 Marshall # (Auto) 1.33 H Eos # (Auto) 0.05 Baso # (Auto) 0.02 PT INR PTT (Actin FS) Sodium 134 L Potassium 3.9 Chloride 97 L Carbon Dioxide 22 L Anion Gap 15 BUN 18 Creatinine 1.5 H Estimated GFR/1.73 m2 45 BUN/Creatinine Ratio 12 Glucose 116 H POC Glucose 191 H Calculated Osmolality 271 Calcium 8.4 L Magnesium Total Bilirubin 0.59 AST 27 ALT 13 Alkaline Phosphatase 82 Creatine Kinase 40 Troponin T Total Protein 6.4 Albumin 3.4 L Globulin 3.0 Albumin/Globulin Ratio 1.1 Plasma Lactate 10/31/18 10/31/18 10/31/18 01:30 01:30 01:30 WBC RBC Hgb Hct MCV MCH MCHC RDW Std Deviation Plt Count MPV Neut % (Auto) Lymph % (Auto) Marshall % (Auto) Eos % (Auto) Baso % (Auto) Neut # (Auto) Lymph # (Auto) Marshall # (Auto) Eos # (Auto) Baso # (Auto) PT 14.0 INR 1.07 PTT (Actin FS) 30.4 Sodium Potassium Chloride Carbon Dioxide Anion Gap BUN Creatinine Estimated GFR/1.73 m2 BUN/Creatinine Ratio Glucose POC Glucose Calculated Osmolality Calcium Magnesium Total Bilirubin AST ALT Alkaline Phosphatase Creatine Kinase Troponin T < 0.010 Total Protein Albumin Globulin Albumin/Globulin Ratio Plasma Lactate 2.3 H 10/31/18 01:30 WBC RBC Hgb Hct MCV MCH MCHC RDW Std Deviation Plt Count MPV Neut % (Auto) Lymph % (Auto) Marshall % (Auto) Eos % (Auto) Baso % (Auto) Neut # (Auto) Lymph # (Auto) Marshall # (Auto) Eos # (Auto) Baso # (Auto) PT INR PTT (Actin FS) Sodium Potassium Chloride Carbon Dioxide Anion Gap BUN Creatinine Estimated GFR/1.73 m2 BUN/Creatinine Ratio Glucose POC Glucose Calculated Osmolality Calcium Magnesium 1.4 L Total Bilirubin AST ALT Alkaline Phosphatase Creatine Kinase Troponin T Total Protein Albumin Globulin Albumin/Globulin Ratio Plasma Lactate Orders Category Date Time Status Cardiac Monitoring DIRECTED Care 10/31/18 01:07 Active Finger Stick Blood Sugar (ED) DIRECTED Care 10/31/18 01:07 Active Oxygen Therapy- ED Nursing DIRECTED Care 10/31/18 01:07 Active Saline Loc NOW Care 10/31/18 01:07 Active Diabetic Diet Diet 10/31/18 01:10 Active CHEST-PORTABLE [RAD] Stat Exams 10/31/18 01:[address] HEAD W/O CONTRAST [CT] Stat Exams 10/31/18 01:08 Taken CBC WITH ELECTRONIC DIFF [HEME] Stat Lab 10/31/18 01:30 Results CK PROFILE [SP CHEM] Stat Lab 10/31/18 01:30 Completed COMPREHENSIVE METABOLIC PANEL [CHEM] Stat Lab 10/31/18 01:30 Completed LACTATE, PLASMA [CHEM] Stat Lab 10/31/18 01:30 Completed MAGNESIUM [CHEM] Stat Lab 10/31/18 01:30 Completed PROTIME WITH INR [COAG] Stat Lab 10/31/18 01:30 Completed PTT [COAG] Stat Lab 10/31/18 01:30 Completed TROPONIN T Stat Lab 10/31/18 01:30 Completed URINALYSIS [URINALYSIS] Stat Lab 10/31/18 01:08 Uncollected 0.9% Sodium Chloride Inj [Ns] 1,000 ml Med 10/31/18 01:09 Discontinued IV 999 mls/hr Altered Mental Status Stat Oth 10/31/18 01:07 Ordered EKG [EKG] Stat Ther 10/31/18 01:07 Ordered Result Diagrams: 10/31/18 01:30 10/31/18 01:30 - REASSESSMENT Reassessment #1 Time Reassessed: 02:24 Status: improving (A&O x 3. Old chart reviewed, abnormal creatinine, calcium, magnesium all are old, however, there is a new blood dyscrasia, which is NEW. Patient has significant neutropenia with an ANC of 0.04 and monocytosis. Will ask hospitalist to admit for further work-up of neutropenia and follow-up on hypoglycemia) Departure - Departure Date of Disposition Decision: 10/31/18 Time of Disposition Decision: 02:26 DIAGNOSIS: Hypoglycemic episode in patient with diabetes mellitus, Seizure, Acquired neutropenia, Monocytosis, Hypomagnesemia with secondary hypocalcemia Disposition: ADMITTED INPATIENT 09 Certified Medical Emergency: Emergent Condition: Fair - Critical Care Note This patient required my direct & personal management of CC.: No Attestation - Physician/ NICIC Attestation Patient care was provided by Advanced Practice Provider:: No The physician spent face to face time with patient:: Yes Advanced Practice Provider documentation review:: Supervising physician onsite and consulted in the evaluation and care of this patient. The physician did have a face to face encounter with the patient.
[2018-10-31] MEDS ORDERED: VANCOMYCIN 1 GM/NS 1 GM/250 ML IVPB IV ONE (02:59)
[2018-10-31] MEDS ORDERED: LEVAQUIN 500 MG/D5W 500 MG/100 ML IVPB IV ONE (03:00)
[2018-10-31 03:10] LABS: LYMPHS 70 % (21-51); MONO 25 % (1-9); SEGS 5 % (42-75)
[2018-10-31 03:30] LABS: URINE SOURCE CLEAN CATCH
[2018-10-31 03:32] LABS: BILIRUBIN URINE NEGATIVE (NEGATIVE); BLOOD URINE NEGATIVE (NEGATIVE); COLOR YELLOW; GLUCOSE URINE TRACE mg/dL (NEGATIVE); KETONE URINE NEGATIVE (NEGATIVE); LEUKOCYTES URINE NEGATIVE (NEGATIVE); NITRITE URINE NEGATIVE (NEGATIVE); PH URINE 5.5; PROTEIN URINE TRACE mg/dL (NEGATIVE); SP GRAVITY URINE 1.009; TURBIDITY URINE CLEAR (CLEAR); UROBILINOGEN URINE NORMAL (NORMAL)
[2018-10-31 03:34] LABS: UR EPITHELIAL CELLS <10 /HPF (<10); URINE BACTERIA NEGATIVE /HPF; URINE RBC <10 /HPF (<10); URINE WBC <10 /HPF (<10)
[2018-10-31] MEDS ORDERED: MAGNESIUM SULFATE 1 GM/D5W 1 GM/100 ML IVPB IV ONE (04:06)
[2018-10-31] MEDS ORDERED: NS 1,000 ML IV SCH (04:06)
--- NOTE | 2018-10-31 04:10 | HISTORY AND PHYSICAL ---
PRIMARY CARE PHYSICIAN: Dr. Victor. CHIEF COMPLAINT: Seizure-like activity, unconscious. HISTORY OF PRESENTING ILLNESS: An 83-year-old elderly male with a history of hypertension, diabetes mellitus type 2, hyperlipidemia, was found by his family members having some kind of seizure activity and became unresponsive. EMS had arrived, they found his blood glucose to be around 25, gave him an amp of D50 and he improved. Brought to the emergency department. He still was somewhat groggy. The patient is, apparently, on oral hypoglycemics. Subsequently, he will require admission for further management. He was also noted that patient had some other electrolyte abnormalities, including low magnesium, and also had neutropenia on his blood count. PAST MEDICAL HISTORY: Includes hypertension, diabetes mellitus type 2, hyperlipidemia. PAST SURGICAL HISTORY: Toe amputation. ALLERGIES: Penicillin. CURRENT MEDICATIONS: Include Lipitor 40 mg p.o. daily, carvedilol 6.25 mg p.o. b.i.d., enalapril 20 mg p.o. b.i.d., glimepiride 2 mg p.o. daily, metformin 500 mg p.o. b.i.d., spironolactone 25 mg p.o. daily. SOCIAL HISTORY: She is a former smoker. History of alcohol abuse in the past. Denies any illicit drug use. FAMILY HISTORY: No history of coronary disease. REVIEW OF SYSTEMS: Fourteen-point review of systems is as in HPI. Other systems negative. PHYSICAL EXAMINATION: GENERAL: Cooperative, friendly male. He is resting comfortably now. VITAL SIGNS: Temperature 97.8 degrees, pulse 92, respiration 22, blood pressure 110/66. HEENT: Atraumatic, normocephalic. Extraocular movements intact. PERRLA. He is hard of hearing. He has some left maxillary sinus tenderness noted. NECK: No masses. CHEST: Clear to auscultation. CARDIOVASCULAR: Regular rate and rhythm. ABDOMEN: Soft. Positive bowel sounds. EXTREMITIES: No edema. NEUROLOGIC: He is awake, alert, oriented x2. GENITOURINARY: No bladder distention. SKIN: Warm. LABORATORIES AND STUDIES: Sodium 134, potassium 3.9, chloride 97, CO2 of 22, BUN is 18, creatinine is 1.5. Glucose is 116, magnesium is 1.4. WBC 4.33, hemoglobin 10.0, hematocrit 32.1, platelets 229,000, neutrophil count is 0.04. ASSESSMENT: An 83-year-old elderly male with a history of hypertension, diabetes mellitus type 2, and hyperlipidemia, was brought to the emergency department due to patient being unconscious and having seizure-like activity. Initially when EMS arrived at his home, he was found to be hypoglycemic. He was given an amp of D50 and improved. He was evaluated in the emergency department, and due to patient being on oral hypoglycemic agents, he will need admission for further management. 1. Diabetes mellitus type 2 with hypoglycemia. 2. Seizure-like activity secondary to #1. 3. Hypomagnesemia. 4. Neutropenia. 5. Hypertension. 6. 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 PLAN: 1. We will admit patient to medical floor with telemetry. 2. We will continue to monitor blood glucose closely. 3. We will hold his oral glycemic agents. 4. Put patient on seizure precautions. 5. Replace his magnesium. 6. We will check B12 level, folate, and ESR level, and hydrate the patient adequately, and recheck his labs. 7. We will monitor blood pressure closely. 8. We will put patient on empiric antibiotics for possible sinusitis. 9. Put patient on deep venous thrombosis prophylaxis, sequential compression devises. 10. We will continue to follow and reassess, make further recommendations based on patient's clinical course. cc: Deepak Olson MD MTDD
--- NOTE | 2018-10-31 05:04 | EKG Report ---
Test Performed on : 10/31/2018 02:02:35 AM Test Reason : AMS Blood Pressure : / mmHG Vent. Rate : 092 BPM Atrial Rate : 092 BPM P-R Int : 214 ms QRS Dur : 094 ms QT Int : 386 ms P-R-T Axes : 057 -06 021 degrees QTc Int : 477 ms Sinus rhythm. with 1st degree AV block. Cannot rule out Inferior infarct , age undetermined Abnormal ECG When compared with ECG of 27-JUL-2017 23:55, premature ventricular complexes. are no longer present QT has lengthened Unconfirmed Result
[2018-10-31] MEDS ORDERED: D50W SYRINGE IV ONE (06:54)
--- NOTE | 2018-10-31 07:10 | Diag Imaging Result Doc PS360 ---
EXAM: CT HEAD W/O CONTRAST 10/31/2018 HISTORY: AMS TECHNIQUE: This exam was performed using automated exposure control, adjustment of mA or kV according to patient size, and/or use of iterative reconstruction technique. COMMENT: There is a small lacune in the right basal ganglia. There are bilateral calcifications in the globus pallidus. There is dense calcification of the left vertebral and both internal carotid arteries. There is no evidence of mass effect, shift, or abnormal extra-axial fluid collection. There is some coastal thickening in ethmoid air cells bilaterally. The mastoid air cells are hypoplastic with opacification of those which are present as well as the middle ear cavity on the right. The calvarium is intact. IMPRESSION: Minimal microvascular changes. Right otitis media and bilateral mastoid effusions. Electronically signed by Simon Solis 10/31/2018 7:07 AM
--- NOTE | 2018-10-31 07:13 | Diag Imaging Result Doc PS360 ---
CHEST-PORTABLE - 10/31/2018 INDICATION: AMS COMPARISON: 07/27/2017 FINDINGS: Stable basilar pleural calcification and costophrenic angle scarring at the left lung base. No new or focal infiltrates. Heart size and pulmonary vascularity is normal. IMPRESSION: No acute process. Electronically signed by Tim Rasmussen 10/31/2018 7:11 AM
[2018-10-31] MEDS ORDERED: D50W SYRINGE IV PRN ×3 (09:03→17:23)
[2018-10-31] MEDS: LIPITOR PO SCH (09:19)
[2018-10-31] MEDS: ALDACTONE PO SCH (09:20)
[2018-10-31] MEDS: VASOTEC PO SCH ×2 (09:20→21:10)
[2018-10-31] MEDS: COREG PO SCH ×2 (09:20→21:10)
[2018-10-31 09:22] LABS: HEMOGLOBIN A1C 6.8 % (4.8-6.0)
[2018-10-31] MEDS: D5 NS 1,000 ML IV SCH (11:18)
--- NOTE | 2018-10-31 14:48 | PROGRESS NOTE ---
DATE: 10/31/2018 SUBJECTIVE: This morning Mr. Ruby refers to be doing okay. No new complaints. He did have the son, the , and the daughter were all at the bedside at the time of the encounter. OBJECTIVE: Vital Signs: Blood pressure 138/74, pulse of 88, respirations 16, and temperature 97.8 degrees. General: Mr. Ruby is an 83-year-old elderly gentleman. He is in bed in no distress. Mucosa is pink and moist. Anicteric. Acyanotic. Neck: Supple. Chest: Clear to auscultation. No crepitations. No rhonchi. Cardiovascular: Regular rate and rhythm. Abdomen: Soft and nontender. Bowel sounds present. Extremities: No pedal edema. AREA FIELD WORKER: Patient was awake, alert, and oriented. LABORATORY DATA: All has been reviewed. The patient's WBC is 4.33, hemoglobin is 10.0 platelet count of 229,000. Chemistry is also reviewed. Patient was hypoglycemic. ASSESSMENT: 1. Symptomatic hypoglycemia on presentation. 2. Hypoglycemia induced by glimepiride. 3. Leukopenia with lymphocytosis. This will be concerning for possible CLL. We will get Heme-Onc to evaluate the patient. cc: Michael Cuello MD MTDD
[2018-11-01] MEDS: D5 NS 1,000 ML IV SCH (01:23)
[2018-11-01] MEDS ORDERED: LEVAQUIN 500 MG/D5W 500 MG/100 ML IVPB IV SCH (03:00)
[2018-11-01 07:59] LABS: BASO# 0.03 X1000 (0.0-0.2); BASO% 0.7 % (0.0-0.8); EOS# 0.09 X1000 (0.0-0.7); EOS% 2.1 % (0.0-10.0); HEMATOCRIT 29.4 % (42.0-52.0); HEMOGLOBIN 9.2 g/dL (14.0-18.0); IMM GRAN# 0.06 X1000 (0.0-0.04); IMM GRAN% 1.4 % (0.0-0.5); LYMPH# 2.59 X1000 (1.2-3.4); LYMPH% 60.2 % (20.5-51.1); MCH 26.1 PG (27-31); MCHC 31.3 g/dL (33-37); MCV 83.5 FL (81-99); MONO# 1.16 X1000 (0.11-0.59); MPV 10.8 FL (7.4-10.4); NEUT# 0.37 X1000 (1.4-6.5); NEUT% 8.6 % (42.2-75.2); PLT 209 X1000 (130-400); RBC 3.52 XMIL (4.7-6.1); RDW 15.6 % (11.5-14.5)
[2018-11-01 08:01] LABS: CREATININE 1.4 mg/dL (0.7-1.2); POTASSIUM 4.4 mmol/L (3.5-5.1)
[2018-11-01 08:02] LABS: CALCIUM 7.8 mg/dL (8.8-10.2)
[2018-11-01 08:21] LABS: BANDS 12 % (0-1); EOS 4 % (1-10); LYMPHS 66 % (21-51); MONO 10 % (1-9); SEGS 6 % (42-75)
[2018-11-01] MEDS: LIPITOR PO SCH (08:31)
[2018-11-01] MEDS: ALDACTONE PO SCH (08:31)
[2018-11-01] MEDS: COREG PO SCH (08:31)
[2018-11-01] MEDS: VASOTEC PO SCH (08:31)
[2018-11-01 10:45] LABS: FLOW CYTOMETERY SOURCE WHOLE BLOOD; LEUKEMIA LYMPHOMA BY FLOW REFERRED FOR TESTING
[2018-11-01 12:09] VITALS: BP 148/57
--- NOTE | 2018-11-01 21:40 | HEMO/ONC CONSULTATION ---
DATE: 11/01/2018 REASON FOR CONSULTATION: Lymphocytosis. REQUESTING: Consultation is requested by the hospitalist service. HISTORY OF PRESENT ILLNESS: Mr. Ruby is an 83-year-old male who presented to the emergency department after having an episode of syncope and possible seizure activity. He did have a very low blood glucose at 25 when this occurred. He was in the ER and they did a workup, and found the patient to have an abnormal complete blood count panel. Of note, he had a granulocyte count of 40 on admission yesterday. His lymph percentage was up to 66.7 with an absolute lymphocyte count of 2.89 on yesterday's labs. We have been consulted due to the abnormalities seen. Plan is for us to help evaluate and treat the patient. Per the patient, he has never had any issues that he knows of in regard to abnormal lab values. He denies any recurrent fevers or chills or any recurrent infections. PAST MEDICAL HISTORY: 1. Hypertension. 2. Diabetes mellitus. 3. Hyperlipidemia. PAST SURGERY: Toe amputation. SOCIAL HISTORY: Patient is a former smoker. He has a history of alcohol abuse also in the past. He denies any illicit drug use. He has 2 family members at bedside. FAMILY HISTORY: Positive for coronary disease. He denies any blood disorders in his family. REVIEW OF SYSTEMS: A 12 point review of systems was completed and negative except for expressed in HPI. PHYSICAL EXAMINATION: Vital Signs: Temperature 97.9 degrees, heart rate 86, respirations 16, blood pressure 120/54, O2 saturation 98% on room air. General: This is an elderly male lying in the hospital bed. He has 2 family members at bedside. He is in no acute distress. HEENT: Head normocephalic, atraumatic. Eyes: Pupils equal, round, reactive. Ears, Nose, Throat: Oral mucosa appears to be normal. Gross auditory acuity is intact. Cardiovascular: S1, S2 heard. No murmurs, gallops, rubs appreciated. Respiratory: Chest is clear. Gastrointestinal: Abdomen is soft. Musculoskeletal: No bony abnormalities. Skin: No rash. Neurologic: Patient is alert and oriented with no focal motor deficits noted. Extremities: Patient has some trace bilateral lower extremity edema. LABS AND STUDIES: White blood cells are 4.30 today, hemoglobin is 9.2, platelet count is 209,000. ANC is up to 370. Lymph percentage is down to 60.2. Absolute lymphocyte count is at 2.59. Monocytes are 1.16 today as well. ASSESSMENT: 1. Abnormal blood values. Flow cytometry has already been completed. His ANC is low without much evidence of why. He does not have a history of low counts. In addition to the flow cytometry, we will go ahead and check ANC and viral studies. Follow up on those results. 2. Symptomatic hypoglycemia. This seems to be improving. Management per the primary team. 3. Episode of syncope. This is likely secondary to his low blood sugars. Thank you for consulting us on Mr. Ruby. We will follow up on all the ordered studies and give further recommendations at that time. Dictated by FERN Mcginnis for Sophie Aranda MD cc: Sophie Aranda MD
[2018-11-02 01:20] LABS: HIV ANTIBODY SCREEN SEE COMMENTS
[2018-11-02 12:50] LABS: ANTINEUTROPHIL CYTOPLASMIC AB SEE COMMENTS
--- NOTE | 2018-11-02 13:53 | DISCHARGE SUMMARY ---
ADMISSION DATE: 10/31/2018 DISCHARGE DATE: 11/01/2018 DISPOSITION: Home. FOLLOW-UP: 1. Dr. Victor. 2. Dr. Fung. CONSULTATIONS DURING THIS ADMISSION: Heme-Onc was consulted, the patient was seen by Dr. Aranda. INVASIVE PROCEDURES DONE DURING THIS ADMISSION: None. IMAGING STUDIES OF SIGNIFICANCE: A chest x-ray showed no acute process. A CT scan of the head showed minimal microvascular changes. ADMISSION DIAGNOSES: 1. Diabetes mellitus type 2 with hypoglycemia. 2. Seizure-like activity. 3. Hypomagnesemia. DIAGNOSES AT THE TIME OF DISCHARGE: 1. Symptomatic hypoglycemia on presentation (glimepiride, sulfonylurea-induced hypoglycemia). 2. Borderline leukopenia with lymphocytosis. 3. Hypertension. 4. Diabetes mellitus. 5. Dyslipidemia. DISCHARGE MEDICATIONS: 1. Atorvastatin 40 mg p.o. daily. 2. Carvedilol 6.25 b.i.d. 3. Spironolactone 25 mg p.o. daily. 4. Enalapril 20 mg p.o. b.i.d. 5. Metformin 500 p.o. b.i.d. MEDICATION THAT HAS BEEN DISCONTINUED: Glimepiride until the patient follows up with primary care. PRESENTING COMPLAINT: Seizure-like activity. HISTORY OF PRESENT COMPLAINT: Mr. Ruby is an 83-year-old gentleman with a history of diabetes mellitus, hypertension, and dyslipidemia. The patient is on oral anti-diabetic medication. He was found early on the morning of presentation to be on the floor, very sweaty, minimally responsive. EMS was called. Patient was evaluated. Initial glucose was about 27. The patient was subsequently brought to the emergency department where he was initially evaluated and admitted. HOSPITAL COURSE: Mr. Ruby did improve during the hospital course. All the neuroglycopenic symptoms got improved with adequate resuscitation. His sulfonylurea was withheld and his glucose was followed accordingly. A1c was 6.8 and his glucose this morning was 166. He is completely asymptomatic at this point. We think he is stable for discharge. During the hospital course, Mr. Ruby was also found to have borderline leukopenia with significant lymphocytosis. He is currently completely asymptomatic however Hematology/Oncology was consulted. The Patient was seen by Dr. Aranda. Multiple studies were done, some of which were not available at the time of discharge. The patient will follow up with Dr. Aranda and review them accordingly. All the discharge instructions were discussed with him. and daughter were at the bedside at the time of the encounter. TIME SPENT: The time spent for discharge is 36 minutes. cc: MD Asael Jaime DO Dr. Shah
[2018-11-02 15:13] LABS: HEPATITIS PROFILE ACUTE SEE COMMENTS
== END 2018-11-01 17:06 | disposition home or self-care (01) ==
LOC: 1N 01:02 → ED 01:02 → SUATTDRO 03:19
PROVIDERS: ATTEND Internal Medicine
CPT/HCPCS: 70450; 71010; 71045; 80048; 80053; 80074; 81001; 82232; 82550; 82607; 82746; 82948; 83036; 83516; 83605; 83615; 83735; 84443; 84484; 85025; 85610; 85651; 85730; 86038; 86039; 86701; 87040; 87389; 87497; 87799; 93005; A9270; J1956; J3475; J7030; J7042; XXXXX

== ENCOUNTER 2019-06-03 14:17 | Inpatient (IN) ==
[2019-06-03] MEDS ORDERED: TYLENOL PO PRN (14:50)
[2019-06-03] MEDS ORDERED: ZOFRAN IV PRN (14:50)
--- NOTE | 2019-06-03 15:26 | Diag Imaging Result Doc PS360 ---
EXAM: CHEST-PORTABLE 06/03/2019 HISTORY: new admit TECHNIQUE: AP portable semierect at 1500 COMMENT: There is ill-defined opacity in the left costophrenic angle and to some extent in the right costophrenic angle. This may be due to fibrosis and was also present on 10/31/2018. There are calcifications over the diaphragmatic pleura on the left. IMPRESSION: Bibasilar pleural and parenchymal fibrosis. Electronically signed by Simon Solis 06/03/2019 3:23 PM
[2019-06-03 15:41] LABS: BASO# 0.02 X1000 (0.0-0.2); BASO% 0.1 % (0.0-0.8); HEMATOCRIT 32.9 % (42.0-52.0); HEMOGLOBIN 10.3 g/dL (14.0-18.0); IMM GRAN# 0.07 X1000 (0.0-0.04); IMM GRAN% 0.4 % (0.0-0.5); LYMPH# 5.04 X1000 (1.2-3.4); LYMPH% 30.4 % (20.5-51.1); MCH 26.3 PG (27-31); MCHC 31.3 g/dL (33-37); MCV 84.1 FL (81-99); MONO# 1.49 X1000 (0.11-0.59); MPV 9.7 FL (7.4-10.4); NEUT# 9.95 X1000 (1.4-6.5); NEUT% 60.1 % (42.2-75.2); PLT 367 X1000 (130-400); RBC 3.91 XMIL (4.7-6.1); RDW 16.1 % (11.5-14.5); WBC 16.57 X1000 (4.8-10.8)
[2019-06-03 15:46] LABS: ALB/GLOB RATIO 0.6; ALBUMIN 2.4 g/dL (3.5-5.0); CALCIUM 8.3 mg/dL (8.8-10.2); CREATININE 1.6 mg/dL (0.7-1.2); MAGNESIUM 1.5 mg/dL (1.5-2.7); POTASSIUM 5.4 mmol/L (3.5-5.1); TOTAL BILIRUBIN 0.46 mg/dL (0.20-1.00); TOTAL PROTEIN 6.7 g/dL (6.3-8.3)
--- NOTE | 2019-06-03 15:59 | HISTORY AND PHYSICAL ---
PRIMARY CARE PROVIDER: Dr. Victor. CHIEF COMPLAINT: Direct admission for recent diagnosis of C- difficile, finished Flagyl, belly pain. WBC is 16 and complaint of black stools, dehydration. HISTORY OF PRESENT ILLNESS: Mr. Ruby is a 84-year-old male with past medical history of hypertension, diabetes mellitus type 2, hyperlipidemia, who recently lost a son to colon cancer and was diagnosed with C-difficile colitis and finished a round of Flagyl. He was direct admit from Dr. Victor's office. Currently pending laboratory and diagnostics. PAST MEDICAL HISTORY: Per HPI. PAST SURGICAL HISTORY: Toe amputation. ALLERGIES: Penicillin. HOME MEDICATIONS: Being compiled. SOCIAL HISTORY: He lives with his . He uses a walker. Former smoker. Alcohol abuse in the past. No illicit drug use. FAMILY HISTORY: No history of coronary disease. 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 He reports for 2 months now he has had navel throbbing, that is a constant pain, black tarry stools for the last 7 to 8 days, increase in his weakness more than usual. Decrease in appetite but no fever, no chills, no chest pain, no shortness of breath, no dysuria. PHYSICAL EXAMINATION: VITAL SIGNS: Will be obtained. GENERAL: Mr. Ruby is an 84-year-old male who is in the admission's area, sitting up in a wheelchair, complaining of throbbing abdominal pain, in no acute distress. HEENT: Atraumatic, normocephalic. PERRL. He had does have hearing aid I believe in the right ear. NECK: Supple, trachea midline. CARDIOVASCULAR: S1, S2 appreciated. No murmurs, gallops, rubs noted. RESPIRATORY: Lung sounds clear bilaterally. GI: Somewhat tender, nondistended. Hypoactive bowel sounds. EXTREMITIES: Lower extremities negative for edema. NEUROLOGIC: No focal deficits noted, just hard of hearing with hearing aids. DIAGNOSTIC DATA: Reviewed. ASSESSMENT AND PLAN: 1. Severe proctitis with perirectal abscess. Will start antibiotic therapy, IV fluid and consult General surgery. 2. C.difficile colitis. Will start flagyl. 3. Hypertension. Stable. 4. Dyslipidemia. Aware. Dictated by MEHRDAD Hearn for Zofia Gomez MD cc: MD Asael Ellison, DO I perfomed a face to face encounter on the patient. I reviewed all labs and imaging on the patient. I agree with the H&P as dictated. MTDD
[2019-06-03] MEDS ORDERED: NS 1,000 ML IV ONE (16:00)
[2019-06-03] MEDS ORDERED: NS 1,000 ML IV SCH (16:00)
--- NOTE | 2019-06-03 16:09 | Diag Imaging Result Doc PS360 ---
EXAM: CT ABDOMEN/PELVIS W/O CONTRAST 06/03/2019 HISTORY: abdominal pain TECHNIQUE: This exam was performed using automated exposure control, adjustment of mA or kV according to patient size, and/or use of iterative reconstruction technique. COMMENT: There is some subpleural fibrosis in the lingula which was apparently present on 08/12/2016. There is a similar appearance in the costophrenic sulci of both lower lobes which was also apparently present previously. There are pleural calcifications over the left hemidiaphragm. There is some stool and barium or other dense material in the colon. The gallbladder is not distended and there is no evidence of cholelithiasis. There is no evidence of hydronephrosis. There are some arterial calcifications present in the right kidney. No abnormal fluid collections are present. There is some fluid and gas in the small bowel which appears somewhat distended in the mid jejunum. There was a somewhat similar appearance on the previous study. There is an abdominal aortic aneurysm and the distal aorta which measures 3.7 cm in AP dimension. Compared to the previous examination this has not changed significantly. The appendix is normal in appearance. There is formed stool throughout the rectosigmoid colon. There is marked perirectal inflammatory change and fluid possibly representing perirectal abscesses. This was not the case on the previous study. There are fat-containing inguinal hernias bilaterally. There has apparently been a considerable decrease in the amount of adipose tissue since the previous study. There are spondylotic changes in the lumbar spine. IMPRESSION: Constipation with severe proctitis and perirectal abscess formation. Electronically signed by Simon Solis 06/03/2019 4:07 PM
[2019-06-03 16:16] LABS: INR 1.16
[2019-06-03] MEDS ORDERED: MORPHINE IV PRN (16:18)
[2019-06-03 16:33] LABS: PTT 29.7 Seconds (22.3-41.8)
[2019-06-03] MEDS: FLAGYL 500 MG/NS 500 MG/100 ML IVPB IV SCH ×2 (18:00→22:24)
[2019-06-03] MEDS ORDERED: CALMOSEPTINE OINTMENT TOP ONE (20:14)
[2019-06-03] MEDS ORDERED: BENADRYL IV PRN (20:37)
--- NOTE | 2019-06-03 21:39 | GENERAL SURGERY CONSULTATION ---
DATE: 06/03/2019 REQUESTING PHYSICIAN: Dr. Zofia Gomez. REASON FOR CONSULTATION: Perirectal abscess. HISTORY OF PRESENT ILLNESS: This is an 84-year-old male whose chief complaint is persistent diarrhea for the last 2 months. He has been trying to manage this at home. His primary care physician Dr. Victor apparently tested him for C difficile colitis, and he started him on Flagyl. He took a course of that and has had no improvement. He is weakening and having black tarry stools, and he does have abdominal pain, although it is not worse than normal, and Dr. Victor felt like he needed admission for further care, as he had failed outpatient treatment and was declining. The patient reports decreased appetite, but no fever, chills, chest pain, shortness of breath, dysuria, or other systemic complaints. He denies any history of chronic constipation. He denies any gross bloody stool. PAST MEDICAL HISTORY: Diabetes, history of gallstones, hypertension, hyperlipidemia, history of leukopenia. PAST SURGICAL HISTORY: Laparoscopic cholecystectomy, ERCP, toe amputation. FAMILY HISTORY: Positive for a son who of colon cancer. SOCIAL HISTORY: He is a former smoker, with alcohol abuse in the past. None currently. HOME MEDICATIONS: Atorvastatin, Coreg, Aldactone, enalapril, and Onglyza. REVIEW OF SYSTEMS: Ten systems reviewed and negative except as noted above. PHYSICAL EXAMINATION: Vital Signs: Temperature 98.1, pulse 86, respirations 23, blood pressure 99/57, O2 saturation 97%. General: Elderly male in no acute distress who looks his stated age. HEENT: Normocephalic, atraumatic. Extraocular muscles intact. Pupils equal, round, reactive to light. Sclerae anicteric. Neck: Supple. No thyromegaly. CV: Regular rate and rhythm. Respiratory: Bilateral breath sounds. No work of breathing. GI: Soft, nontender, nondistended. No organomegaly or mass. Extremities: No clubbing, cyanosis, or edema. Skin: Warm and dry. No rash. Musculoskeletal: Moves all extremities equally and well. Rectal: A digital rectal exam was performed. There is some mild perirectal tenderness within the rectal vault. He did have some solid formed stool. In addition there is a concern for a frondlike mass at the tip of my finger within the rectal vault. I did not see any gross blood. He had no inflammatory changes of the perineum or perianal skin. LABORATORY: White cell count 16,000, hemoglobin 10, hematocrit 32.9. Electrolytes reviewed. Notable for sodium 128, potassium 5.4, chloride 94, CO2 of 20, BUN 37, creatinine 1.6, AST 42, ALT 23. IMAGING: CT of the abdomen and pelvis was performed today showing stool and barium or other dense material in the colon, formed stool throughout the rectosigmoid colon and marked perirectal inflammatory changes and fluid with droplets of air which could represent perirectal abscesses versus contained retroperitoneal perforation. There are bilateral fat-containing inguinal hernias. The impression by the radiologist was constipation with severe proctitis and perirectal abscess formation. ASSESSMENT/PLAN: 84-year-old male with chief complaint of persistent diarrhea, abdominal pain, physical deconditioning, weakness and black tarry stools with rectal exam and imaging concerning for a possible rectal mass, proximal rectosigmoid constipation with severe proctitis and perirectal inflammatory changes which could represent contained perforation and/or abscess. My plan is to obtain a stool Hemoccult, start Merrem for broad-spectrum antibiotics, bowel rest and obtain a Hypaque followed by barium enema tomorrow for further anatomic definition of his rectosigmoid region. I do not think he needs an urgent operation. If there are small abscesses, they may be controlled simply with bowel rest, stool evacuation and antibiotics. I am also concerned about malignancy. cc: Michael Hudson MD
[2019-06-03] MEDS: MERREM 1 GM in NS 50 ML IV SCH (22:23)
[2019-06-04] MEDS ORDERED: NS 1,000 ML IV ONE (02:04)
[2019-06-04] MEDS: NS 1,000 ML IV SCH ×2 (03:55→16:55)
[2019-06-04] MEDS: MERREM 1 GM in NS 50 ML IV SCH ×3 (04:48→22:20)
[2019-06-04 05:48] LABS: URINE SOURCE CLEAN CATCH
[2019-06-04] MEDS: FLAGYL 500 MG/NS 500 MG/100 ML IVPB IV SCH ×4 (05:48→22:20)
[2019-06-04 05:50] LABS: BILIRUBIN URINE NEGATIVE (NEGATIVE); BLOOD URINE NEGATIVE (NEGATIVE); COLOR YELLOW; GLUCOSE URINE NEGATIVE (NEGATIVE); KETONE URINE TRACE mg/dL (NEGATIVE); LEUKOCYTES URINE MODERATE (NEGATIVE); NITRITE URINE NEGATIVE (NEGATIVE); PROTEIN URINE TRACE mg/dL (NEGATIVE); SP GRAVITY URINE 1.016; TURBIDITY URINE CLEAR (CLEAR); UROBILINOGEN URINE 2 mg/dL (NORMAL)
[2019-06-04 05:51] LABS: UR EPITHELIAL CELLS <10 /HPF (<10); URINE BACTERIA 1+ /HPF; URINE RBC <10 /HPF (<10)
[2019-06-04 08:20] LABS: ALB/GLOB RATIO 0.5; ALBUMIN 1.7 g/dL (3.5-5.0); CALCIUM 7.3 mg/dL (8.8-10.2); CREATININE 1.3 mg/dL (0.7-1.2); MAGNESIUM 1.4 mg/dL (1.5-2.7); POTASSIUM 4.8 mmol/L (3.5-5.1); TOTAL BILIRUBIN 0.28 mg/dL (0.20-1.00)
[2019-06-04 08:30] LABS: BASO# 0.01 X1000 (0.0-0.2); BASO% 0.1 % (0.0-0.8); EOS# 0.01 X1000 (0.0-0.7); EOS% 0.1 % (0.0-10.0); HEMATOCRIT 26.1 % (42.0-52.0); HEMOGLOBIN 8.1 g/dL (14.0-18.0); IMM GRAN# 0.04 X1000 (0.0-0.04); IMM GRAN% 0.4 % (0.0-0.5); LYMPH# 2.76 X1000 (1.2-3.4); LYMPH% 25.1 % (20.5-51.1); MCH 26.5 PG (27-31); MCV 85.3 FL (81-99); MONO# 1.04 X1000 (0.11-0.59); MONO% 9.5 % (1.7-9.3); MPV 9.4 FL (7.4-10.4); NEUT# 7.13 X1000 (1.4-6.5); NEUT% 64.8 % (42.2-75.2); PLT 247 X1000 (130-400); RBC 3.06 XMIL (4.7-6.1); RDW 16.2 % (11.5-14.5); WBC 10.99 X1000 (4.8-10.8)
[2019-06-04] MEDS ORDERED: MAGNESIUM SULFATE 2 GM/S.W.I. 2 GM/50 ML IVPB IV ONE (10:52)
[2019-06-04] MEDS ORDERED: D50W SYRINGE IV ONE (11:02)
--- NOTE | 2019-06-04 13:44 | Diag Imaging Result Doc PS360 ---
EXAM: BARIUM ENEMA INDICATION: abdominal pain, rectal mass on ARIANNA TECHNIQUE: Water-soluble iodinated contrast was administered per rectum and spot images were obtained of the colon and rectum in usual fashion after administration. COMPARISON: None. FINDINGS: There is irregular narrowing associated with the rectum that is suspicious for neoplasm. This was also seen on a recent CT. There is also mild contrast extravasation in this region suggesting contained colonic perforation. This was also suggested on the recent CT. A moderate amount of stool is seen in the descending colon. There is mild diverticulosis coli. No other stricture or mass is identified. IMPRESSION: Irregular long stricture associated with the rectum that is suspicious for neoplasm with a small amount of pericolonic contrast extravasation suggesting contained perforation as was seen on recent CT. Electronically signed by Dougie Dinh 06/04/2019 1:42 PM
[2019-06-04] MEDS ORDERED: GOLYTELY PO ONE (14:22)
--- NOTE | 2019-06-04 17:03 | PROGRESS NOTE ---
DATE: 06/04/2019 SUBJECTIVE: The patient states that he feels much better today. He denies having any nausea, vomiting, or abdominal pain at this time. OBJECTIVE: Vital Signs: Temperature 97.3 degrees, blood pressure 84/47, heart rate 99, respirations 16, O2 saturation 96% on room air. General: This is a chronically ill-appearing elderly male lying in bed in no acute distress. Heart: S1, S2 normal. Regular rate and rhythm. Lungs: Equal air entry bilaterally. No wheezing. No rales. Abdomen: Positive bowel sounds. Soft, nontender, nondistended. Extremities: No edema, no cyanosis, no calf tenderness. Neurologic: The patient is alert and oriented x3. LABS: White blood cell count 10, hemoglobin 8.1, hematocrit 26, platelets 247,000. Sodium 136, potassium 4.8, chloride 105, CO2 19, BUN 32, creatinine 1.3, glucose 81, magnesium 1.4, calcium 7.3, albumin 1.7. ASSESSMENT AND PLAN: 1. Rectal mass with a with severe proctitis and a perirectal abscess. The barium enema was reviewed. Further recommendations to follow from the general surgeon. Continue with antibiotics. 2. Urinary tract infection. Continue with antibiotic therapy. 3. Leukocytosis. Improved. Continue with antibiotics. 4. Anemia. We will monitor the hemoglobin and hematocrit closely and transfuse as necessary. 5. Acute kidney injury. Slowly improving. Continue with IV fluid hydration. 6. Hypomagnesemia. We will replace the patient's magnesium. 7. Severe protein calorie malnutrition. Aware. 8. History of recent C. Difficile infection. Continue on Flagyl. 9. Deep vein thrombosis prophylaxis. Continue with SCDs. cc: Zofia Gomez MD
--- NOTE | 2019-06-04 19:21 | GENERAL SURGERY PROGRESS NOTE ---
DATE: 06/04/2019 SUBJECTIVE: The patient denies abdominal pain, nausea, vomiting, fever, or chills. He is hungry. He has passed several more stools overnight. OBJECTIVE: Vital signs: He is afebrile. Vital signs are stable. General: He is awake, alert and oriented x3. No acute distress. Gastrointestinal: Soft, nontender, nondistended. LABORATORY DATA: White blood cell count 10.9, hemoglobin 8.1, hematocrit 26.1. IMAGING: The barium enema today showed an irregular long stricture in the rectum suspicious for neoplasm with a small amount of pericolonic contrast extravasation suggesting contained perforation. ASSESSMENT AND PLAN: An 84-year-old male with pericolonic contained perforation. Etiology is unclear, but a neoplasm is suspected. I am planning a bowel prep today with flexible sigmoidoscopy tomorrow. I discussed this with the patient and his family. We went over the risks and benefits of the procedure including bleeding, further perforation, aspiration, and other imponderables. They understand and agree to proceed. cc: Michael Hudson MD
[2019-06-05] MEDS: NS 1,000 ML IV SCH ×3 (01:57→17:45)
[2019-06-05] MEDS: MERREM 1 GM in NS 50 ML IV SCH ×3 (04:21→20:47)
[2019-06-05] MEDS: FLAGYL 500 MG/NS 500 MG/100 ML IVPB IV SCH ×4 (04:21→23:37)
[2019-06-05] MEDS ORDERED: FLEET MINERAL OIL ENEMA PR ONE (07:00)
[2019-06-05 08:42] LABS: BASO# 0.01 X1000 (0.0-0.2); BASO% 0.1 % (0.0-0.8); EOS# 0.01 X1000 (0.0-0.7); EOS% 0.1 % (0.0-10.0); HEMATOCRIT 26.3 % (42.0-52.0); IMM GRAN# 0.03 X1000 (0.0-0.04); IMM GRAN% 0.3 % (0.0-0.5); LYMPH# 3.11 X1000 (1.2-3.4); LYMPH% 32.4 % (20.5-51.1); MCH 26.1 PG (27-31); MCHC 30.4 g/dL (33-37); MCV 85.9 FL (81-99); MONO# 0.81 X1000 (0.11-0.59); MONO% 8.4 % (1.7-9.3); MPV 9.6 FL (7.4-10.4); NEUT# 5.63 X1000 (1.4-6.5); NEUT% 58.7 % (42.2-75.2); PLT 244 X1000 (130-400); RBC 3.06 XMIL (4.7-6.1); RDW 16.3 % (11.5-14.5)
[2019-06-05 08:53] LABS: MAGNESIUM 1.7 mg/dL (1.5-2.7); PHOSPHORUS 2.9 mg/dL (2.7-4.5)
[2019-06-05 09:18] LABS: AGAP 13; ALB/GLOB RATIO 0.4; ALBUMIN 1.5 g/dL (3.5-5.0); ALKALINE PHOSPHATASE 105 U/L (32-122); BUN 23 mg/dL (8-22); CALCIUM 7.5 mg/dL (8.8-10.2); CHLORIDE 103 mmol/L (98-107); COSMO 270; CREATININE 1.1 mg/dL (0.7-1.2); ESTIMATED GFR > 60; GLUCOSE 62 mg/dL (70-104); GOT 32 U/L (10-34); GPT 18 U/L (10-44); POTASSIUM 3.8 mmol/L (3.5-5.1); SODIUM 134 mmol/L (136-145); TCO2 18 mmol/L (25-35); TOTAL BILIRUBIN 0.26 mg/dL (0.20-1.00); TOTAL PROTEIN 4.9 g/dL (6.3-8.3)
[2019-06-05] MEDS ORDERED: DIPRIVAN 1% ONE (10:45)
[2019-06-05] MEDS ORDERED: EPHEDRINE ONE (11:04)
--- NOTE | 2019-06-05 12:04 | OPERATIVE NOTE ---
PROCEDURE DATE: 06/05/2019 PREOPERATIVE DIAGNOSIS: Rectal mass. POSTOPERATIVE DIAGNOSIS: Rectal mass. PROCEDURE PERFORMED: Flexible sigmoidoscopy with biopsy of rectal mass. SURGEON: Michael Hudson M.D. ANESTHESIA: IV sedation. ESTIMATED BLOOD LOSS: 3 mL. COMPLICATIONS: None apparent. FINDINGS: The patient had a friable, long, strictured, near-circumferential, inflamed segment of distal rectum suspicious for malignancy. The proximal aspect of this was at 15 cm from the anal verge, and distally it was 4.5 cm from the anal verge. Proximal to this, in the sigmoid colon, there were multiple diverticula, but no diverticulitis. TECHNIQUE: The patient was brought to the endoscopy suite and placed on his left side. IV sedation was induced. A digital rectal exam was performed, and the mass could be palpated 4.5 cm from the anal verge. There appeared to be a significant stricture associated with it. The endoscope was then placed into the rectal vault, and with some difficulty, navigated through a long, strictured segment, into the sigmoid colon, where there was noninflamed diverticulosis identified. I then withdrew the scope slowly, and found the strictured mass-like area, and biopsied it at the proximal aspect and the distal aspect with cold biopsy forceps. This concluded the procedure. He tolerated it well without apparent complication. cc: Michael Hudson MD
--- NOTE | 2019-06-05 13:57 | HEMO/ONC CONSULTATION ---
DATE: 06/05/2019 REASON FOR CONSULTATION: Rectal mass. HISTORY OF PRESENT ILLNESS: Mr. Ruby is an 84-year-old male who was direct admitted by his primary care physician for continued diarrhea after treatment for C difficile colitis. The patient completed a round of Flagyl and was continuing to feel unwell. The patient was admitted on the . An abdomen and pelvis CT showed the patient had constipation with severe proctitis and perirectal abscess formation. Surgery was consulted and found that the patient has had diarrhea for 2 months. He had no improvement with the treatment for C difficile. He is becoming more weak and having black tarry stools with abdominal pains. He had decreased appetite but denies fever, chills, chest pain, or shortness of breath. The patient had a barium enema and determined there was a rectal mass. Dr. Hudson took the patient to the OR today for a flexible sigmoidoscopy with biopsy of rectal mass. The findings showed a friable, long, strictured, near circumferential, inflamed segment of distal rectum suspicious for malignancy. It was distally 4.5 cm from the anal verge. PAST MEDICAL HISTORY: Hypertension, type 2 diabetes, hyperlipidemia. PAST SURGICAL HISTORY: Toe amputation. FAMILY HISTORY: The patient recently lost a son to colon cancer. SOCIAL HISTORY: Former smoker. Former alcohol abuse. Currently no tobacco, alcohol, or illicit drugs. ALLERGIES: Penicillin. HOME MEDICATIONS: Atorvastatin, carvedilol, enalapril, saxagliptin, spironolactone. REVIEW OF SYSTEMS: The patient complains of abdominal pain, black tarry stools, weakness, and loss of appetite. All other review of systems negative. PHYSICAL EXAMINATION: Vital Signs: Temperature 97.4 degrees, pulse rate 85, respiratory rate 19, blood pressure 82/63, O2 saturation 96% on room air. He is currently in 0/10 pain. General: The patient appears uncomfortable but stable. HEENT: Sclerae anicteric. PERRLA. Oral mucosa is dry. Hearing aid noted to the right ear. Cardiovascular: Normal S1, S2. Heart rate and rhythm regular. No murmurs noted. Respiratory: Lung sounds are clear to auscultation. Gastrointestinal: Mildly diffusely tender, nondistended. Hypoactive bowel sounds. Extremities: No lower extremity edema noted. Neurological: Alert and oriented x3. Very hard of hearing despite wearing hearing aids. No other focal motor deficits noted. LABORATORY DATA: WBCs 9.6, hemoglobin 8.0, hematocrit 26.3, platelet count 244,000. Sodium 134, potassium 3.8, creatinine 1.1, calcium 7.5, protein 4.9, albumin 1.5. CEA pending. C difficile antigen positive, toxin negative. RADIOLOGY: Chest x-ray, bibasilar pleural and parenchymal fibrosis. Abdomen and pelvis CT, constipation with severe proctitis and perirectal abscess formation. Barium enema, irregular long stricture associated with the rectum that is suspicious for neoplasm with a small amount of pericolonic contrast extravasation suggesting contained perforation as was seen on recent CT. ASSESSMENT AND PLAN: 1. Rectal mass. The rectal mass was biopsied this morning. We will wait on pathology. We have ordered a CEA and will also order a CTA of the chest to rule out any metastasis. 2. Clostridium difficile. Continue to treat the patient for Clostridium difficile per medical management and treat associated abdominal pain. 3. Deep venous thrombosis prophylaxis. The patient should have on sequential compression devices. Allow him to get out of bed up to chair with assistance. Consider anticoagulation when cleared from Surgery. Dictated by MEHRDAD Keating for Charlie Sims MD cc: Charlie Sims MD
--- NOTE | 2019-06-05 15:22 | Diag Imaging Result Doc PS360 ---
EXAM: CT THORAX W/O CONTRAST INDICATION: r/o mets TECHNIQUE: This exam was performed using automated exposure control, adjustment of mA or kV according to patient size, and/or use of iterative reconstruction technique. COMPARISON: None. FINDINGS: There is a calcified pleural plaque at the left lung base. There is a small to moderate-sized left pleural effusion and a trace right effusion. There is mild subsegmental atelectasis at both lung bases. There is prominent peripheral fibrosis associated with the lingula there is also likely a component of atelectasis and possibly superimposed infiltrate at the lingula. There is mild peripheral fibrotic change throughout the remainder of both lungs. There is a calcified granuloma at the right lung apex. There are a few calcified mediastinal lymph nodes indicating prior granulomatous disease. There is no cardiomegaly. There is aortic and coronary artery atherosclerotic calcification. Limited views of the upper abdomen reveals small volume ascites that is tracking around the liver and spleen that has developed since a previous CT of the abdomen and pelvis dated 06/03/2019. There is nothing to suggest local bony metastatic disease to the thorax. IMPRESSION: 1.Small to moderate-sized left pleural effusion and trace right effusion. 2.Prominent fibrotic change at the periphery of the lingula likely with a component of atelectasis and possibly superimposed infiltrate. 3.Milder peripheral fibrotic change throughout the remainder of both lungs. 4.Small volume ascites tracking around the liver and spleen. 5.There is nothing specific for metastatic disease to the thorax as imaged with unenhanced CT. Electronically signed by Dougie Dinh 06/05/2019 3:19 PM
[2019-06-05] MEDS: VANCOCIN PO SCH ×2 (15:30→21:05)
--- NOTE | 2019-06-05 17:12 | PROGRESS NOTE ---
DATE: 06/05/2019 SUBJECTIVE: The patient just returned from endoscopy and he is a little confused. OBJECTIVE: Vital Signs: Temperature 98.2 degrees, blood pressure 82/68, heart rate 85, respirations 19, and O2 saturation is 100% on room air. General: This is a chronically ill- appearing elderly male lying in bed in no acute distress. Heart: S1, S2 normal. Regular rate and rhythm. Lungs: Clear to auscultation bilaterally. Diminished breath sounds at the bases. Abdomen: Positive bowel sounds. Soft, nontender, and nondistended. Extremities: No edema. No cyanosis. Neurologic: The patient is alert and oriented x3. LABORATORY: White blood cell count 9.6, hemoglobin 8, hematocrit 26, and platelets 244,000. Sodium 134, potassium 3.8, chloride 103, CO2 18, BUN 23, creatinine 1.1, glucose 62, albumin 1.5, and magnesium 1.7. AST 32, ALT 18, alkaline phosphatase 105, and CEA 14.5. ASSESSMENT AND PLAN: 1. Rectal mass with severe proctitis. The patient underwent a sigmoidoscopy today and biopsies were taken during the procedure. The pathology is currently pending. Oncology has been consulted. Further management as per the general surgeon. 2. Clostridium difficile colitis. Continue on Flagyl. 3. Severe protein calorie malnutrition. Continue with meal supplements. 4. Acute kidney injury. Improved. Continue with IV fluids. 5. Anemia. Stable. Monitor closely. We will transfuse as necessary. 6. Deep vein thrombosis prophylaxis. Continue with SCD's. cc: Zofia Gomez MD
--- NOTE | 2019-06-05 21:05 | GENERAL SURGERY PROGRESS NOTE ---
DATE: 06/05/2019 SUBJECTIVE: The patient denies abdominal pain. He is hungry and anxious to know his diagnosis and treatment plan and hopefully discharge from the hospital soon. OBJECTIVE: Vital signs: He is afebrile. Vital signs are stable. General: He is awake and alert, oriented x3. No acute distress. Gastrointestinal: Soft, nontender, nondistended. 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 Biopsies were done today. Results are pending. I had a radha discussion with the patient and his family that this is cancer in all likelihood. We need further staging including an MRI of his pelvis. He had a CT scan of his chest today, which did not show any metastatic disease. I do not think this patient is a candidate for immediate surgical resection. He has indicated he wants to avoid a colostomy if at all possible. Therefore, my plan is to obtain an MRI tomorrow for staging, allow him to be discharged. He will follow up with me next week for [id number] placement and discussion of his staging and then I foresee him undergoing neoadjuvant chemotherapy and radiation, and we would have repeat assessment as to surgical resection viability and what his goals are after he completes neoadjuvant therapy. In regards to the contained perforation around the rectum, he is stable and I would favor transitioning him to oral antibiotics for another week at the time of discharge tomorrow. cc: Michael Hudson MD
[2019-06-06] MEDS: VANCOCIN PO SCH ×2 (02:35→09:06)
[2019-06-06] MEDS: FLAGYL 500 MG/NS 500 MG/100 ML IVPB IV SCH (04:44)
[2019-06-06 08:01] LABS: AGAP 8; BUN 19 mg/dL (8-22); CALCIUM 7.2 mg/dL (8.8-10.2); CHLORIDE 103 mmol/L (98-107); COSMO 275; CREATININE 1.1 mg/dL (0.7-1.2); ESTIMATED GFR > 60; GLUCOSE 278 mg/dL (70-104); MAGNESIUM 1.6 mg/dL (1.5-2.7); POTASSIUM 3.6 mmol/L (3.5-5.1); SODIUM 131 mmol/L (136-145); TCO2 20 mmol/L (25-35)
[2019-06-06 08:31] LABS: HEMATOCRIT 27.7 % (42.0-52.0); HEMOGLOBIN 8.6 g/dL (14.0-18.0); MCH 26.4 PG (27-31); MPV 9.7 FL (7.4-10.4); RBC 3.26 XMIL (4.7-6.1); RDW 16.3 % (11.5-14.5); WBC 8.42 X1000 (4.8-10.8)
[2019-06-06] MEDS: MERREM 1 GM in NS 50 ML IV SCH (09:06)
[2019-06-06] MEDS: NS 1,000 ML IV SCH (09:08)
--- NOTE | 2019-06-06 09:19 | Diag Imaging Result Doc PS360 ---
EXAM: MRI PELVIS W/WO CONTRAST 06/06/2019 HISTORY: staging of rectal cancer TECHNIQUE: Coronal T1, water, axial T1 and T2 with post gadolinium T1 fat sat, sagittal water 3-D, T2. COMMENT: The current study is compared with the CT of 06/03/2019. There is mucosal thickening in the distal rectum, particularly visible on the T2 weighted image series axial on image 21. There is a mass in the perirectal fat on the right lateral aspect of the rectum. In addition there are fluid collections in the perirectal space bilaterally as well which most likely represent abscesses as suggested on the previous CT. There is less stool in the distal colon than on the previous examination. The urinary bladder is somewhat distended. There is considerable ascites which was not the case at the time the previous study. There is considerable gadolinium enhancement throughout the perirectal space extending into the presacral fat. It is unclear how much of this is due to abscess formation and how much to extension of neoplastic disease. There is tumor extending at least 7 cm along the lumen of the distal sigmoid and rectum. The mass is at least 3.1 cm in anterior posterior dimension and 4 cm transversely. Abscess formation posteriorly extends at least 6.3 cm in superior-inferior dimension and 6.1 cm transversely with an anterior component which is at least 3.4 cm in greatest axial dimension. There is no apparent osseous involvement. IMPRESSION: 1. Large rectal mass with probable extension into the perirectal space and perforation with secondary abscess formation. 2. Interval development of ascites and distention of the urinary bladder. Electronically signed by Simon Solis 06/06/2019 9:17 AM
[2019-06-06] MEDS ORDERED: MAGNESIUM SULFATE 2 GM/S.W.I. 2 GM/50 ML IVPB IV ONE (10:03)
[2019-06-06] MEDS ORDERED: JANUVIA PO ONE (10:46)
[2019-06-06] MEDS ORDERED: HUMULIN R SUBQ SCH (11:00)
[2019-06-06 11:29] VITALS: BP 120/75
--- NOTE | 2019-06-06 13:08 | HEMO/ONC PROGRESS NOTE ---
DATE: 06/06/2019 SUBJECTIVE: Mr. Ruby is in a pleasant mood this morning. He is in the process of being taken to MRI for staging studies this morning. He denies any pain. He denies any nausea, vomiting, or diarrhea. He has no complaints. He had a good night's sleep. OBJECTIVE: Vital Signs: Temperature 98.5 degrees, pulse rate 104, respiratory rate 18, blood pressure 120/75, and O2 saturation 100% on room air. He is in 0/10 pain. General: The patient is comfortable. He is very hard of hearing, and wears one hearing aid. Cardiovascular: S1, S2 noted. Heart rate and rhythm tachycardic, but regular. Respiratory: Lung sounds are clear to auscultation. Gastrointestinal: Abdomen is slightly tender and nondistended. Soft. Hypoactive bowel sounds. Neurological: Hard of hearing. Alert and oriented. No focal motor deficits. Extremities: No lower extremity edema noted. LABORATORY: WBCs 8.42, hemoglobin 8.6, hematocrit 27.7, and platelet count 271,000. Sodium 131, calcium 7.2, and Mag 1.6. RADIOLOGY: The chest CT shows no evidence of metastatic disease to the chest. Pelvis MRI shows large rectal mass with probable extension into the perirectal space and perforation with secondary abscess formation. Interval development of ascites and distention of the urinary bladder. ASSESSMENT AND PLAN: 1. Rectal mass. We are continuing to wait on his pathology. The patient's CEA is slightly elevated at 14.5. The patient continues to feel well today. We will follow up with the patient in the clinic as an outpatient when pathology comes back to discuss further treatment. 2. Clostridium difficile. The patient will continue on Flagyl. Continue on precautions. 3. Deep venous thrombosis prophylaxis. The patient has had on sequential compression devices. He is able to get up with assistance. 4. Disposition: The patient is being discharged today. We will see him in 1 to 2 weeks in the office. Dictated by MEHRDAD Keating for Charlie Sims MD Discussed with Dr. Hudson. Ok with discharge from my standpoint. Antibiotics per Dr Hudson for abscess. Patient to follow up with Surgery regarding abscess resolution. MRI shows locally advanced cancer. Plan for chemoRT followed by surgery. Family aware. Will assess performance status outpatient and plan further management accordingly. Charlie Sims MD cc: Charlie Sims MD [facility]
--- NOTE | 2019-06-15 18:03 | DISCHARGE SUMMARY ---
ADMISSION DATE: 06/03/2019 DISCHARGE DATE: 06/06/2019 FINAL DISCHARGE DIAGNOSES: 1. Rectal mass with severe proctitis and abscess 2. Clostridium difficile colitis. 3. Severe protein calorie malnutrition. 4. Anemia of chronic disease. 5. Acute kidney injury. 6. Hypomagnesemia. 7. Hyponatremia. CONSULTATIONS: 1. GI consultation with Dr. Hudson. 2. Oncology consultation with Dr. Sims. IMAGIN. Chest x-ray performed on 06/03/2019, which revealed bibasilar pleural and parenchymal fibrosis. 2. CT of the abdomen and pelvis without contrast which revealed constipation with severe proctitis and a perirectal abscess formation. 3. 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 4. CT of the chest which revealed a small to moderate-sized left pleural effusion, trace right effusion as well as atelectasis and possibly superimposed infiltrate. 5. MRI of the pelvis performed on 06/06/2019, which revealed a large rectal mass with extension into the perirectal space and perforation with this secondary abscess formation as well as interval development of the ascites and distention of the urinary bladder. HOSPITAL COURSE: Mr. Ruby is an 84-year-old male who was sent to the ER as a direct admission due to the complaint of dehydration, black stools, and an elevated white blood cell count at his primary care physician's office. Upon arrival, a CT of the abdomen and pelvis was done that revealed severe constipation with severe proctitis as well as a perirectal abscess. In light of these findings, General Surgery was consulted. In the meantime, given the patient's history of C- diff, the patient was started on Flagyl and broad-spectrum antibiotics as a result of the CT findings as well and IV fluids were also initiated for the patient's acute kidney injury. The following day, the patient underwent a barium enema that revealed an irregular long stricture associated with the rectum, so the patient was then scheduled to undergo a sigmoidoscopy the following day. The patient underwent a flexible sigmoidoscopy on 06/05/2019, which revealed a large rectal mass. The mass was biopsied and a pelvic MRI was ordered. The pelvic MRI revealed a large rectal mass with extension into the perirectal space with perforated perforation and with secondary abscess formation. Oncology was also consulted for further recommendations. At the time of this dictation the pathology report was not available. The patient's laboratory data improved with IV fluids and antibiotic therapy. The patient was also noted to have an elevated CEA, so it was thought that this represented cancer. These findings were shared with the patient and his family. It was decided by the general surgeon that the patient was stable for discharge home with close follow up as outpatient to be established by both Dr. Sims and Dr. Hudson. DISCHARGE MEDICATIONS: 1. Vancomycin 125 mg oral every 6 hours. 2. Flagyl 500 mg oral 3 times a day. 3. Levaquin 750 mg oral daily. 4. Lipitor 40 mg p.o. daily. 5. Coreg 6.25 mg oral daily. 6. Aldactone 25 mg oral daily. 7. Enalapril 20 mg oral twice a day. 8. Januvia 50 mg oral daily. 9. Onglyza 1 tab oral daily. DISCHARGE DIET: GI soft diet. ACTIVITY: As tolerated. FOLLOWUP INSTRUCTIONS: The patient is scheduled to follow up with Dr. Hudson on 06/13/2019 at 1 p.m. The patient will need to follow up with Dr. Sims as scheduled by his clinic. cc: MD Asael Ellison DO MTDD
== END 2019-06-06 14:30 | disposition home or self-care (01) | DRG 374 ==
LOC: DIRADM 14:17 → EDIPHOLD 14:26 → 3N 18:34
PROVIDERS: ATTEND Internal Medicine